=== PATIENT | female | born 1955 | race American Indian/Alaskan Native ===

== ENCOUNTER 2016-11-15 14:44 | Emergency (ER) | payer MEDICARE ==
[2016-11-15 15:05] LABS: Basophils % (Auto) 0.9 % (0.0-1.8); Eosinophils % (Auto) 2.5 % (0.0-4.3); Hematocrit 33.5 % (30.3-42.9); Hemoglobin 11.1 gm/dl (10.1-14.3); Mean Corpuscular HGB Conc 33 % (30-34); Mean Corpuscular Hemoglobin 29 pg (28-32); Mean Corpuscular Volume 88 fl (79-97); Platelet Count 230 K/mm3 (140-440); Red Blood Count 3.83 M/mm3 (3.65-5.03); Red Cell Distribution Width 15.9 % (13.2-15.2); White Blood Count 4.4 K/mm3 (4.5-11.0)
[2016-11-15 15:25] LABS: Calcium 9.5 mg/dL (8.4-10.2); Chloride 93.2 mmol/L (98-107); Potassium 3.7 mmol/L (3.6-5.0)
[2016-11-15 15:30] LABS: Bacteria,Urine 1+ /HPF (Negative); Bilirubin,Urine NEG (Negative); Blood,Urine SM (Negative); Ketones,Urine TR mg/dL (Negative); Leukocyte Esterase,Urine TR (Negative); Mucus,Urine FEW /HPF; Nitrite,Urine NEG (Negative); Protein,Urine <15 mg/dL mg/dL (Negative); Urobilinogen,Urine < 2.0 mg/dL (<2.0)
[2016-11-15] MEDS ORDERED: NACL 0.9% 1000 ML 1,000 ML IV ONE (16:22)
--- NOTE | 2016-11-15 16:29 | Emergency Department Report ---
ED General Adult HPI - General Chief complaint: Hyperglycemia Stated complaint: HBS Time Seen by Provider: 11/15/16 16:10 Source: patient, EMS Mode of arrival: Ambulatory Limitations: No Limitations - History of Present Illness Initial comments: 61-year-old female with history of hypertension, diabetes, schizophrenia, hyperlipidemia presenting today because of hyperglycemia. Patient states that she had a fingerstick of 361 at home and had hotdogs and chips for lunch and noticed that she was lightheaded and that her fingerstick gone to "HI". She had taken 24 units of NovoLog at that time. She states that she has no other significant symptoms other than some mild polydipsia and polyuria. Denies any fevers or chills, dysuria, hematuria, chest pain or pain anywhere else. Patient was unaware about foods such as chips hotdog bonds can bring her sugar levels too high. Severity scale (0 -10): 0 - Related Data Home Medications Medication Instructions Recorded Confirmed Last Taken Aspirin [Baby Aspirin] 81 mg PO QDAY 03/30/13 03/30/13 Unknown Benztropine Mesylate [Benztropine 1 mg PO 03/30/13 03/30/13 Unknown Mesylate INJ] Carvedilol [Coreg] 12.5 mg PO 03/30/13 03/30/13 Unknown Docusate Sodium [Colace] 100 mg PO BID 03/30/13 03/30/13 Unknown Ferrous Gluconate [Fergon] 325 mg PO TID 03/30/13 03/30/13 Unknown Hydrochlorothiazide [Hctz] 25 mg PO QDAY 03/30/13 03/30/13 Unknown Insulin Aspart [NovoLOG 100 10 units SC HS 03/30/13 03/30/13 Unknown UNITS/ML VIAL] Insulin Glargine,Hum.rec.anlog 40 unit SQ QHS 03/30/13 03/30/13 03/29/13 23:00 [Lantus Solostar] Lisinopril [Zestril] 10 mg PO QDAY 03/30/13 03/30/13 Unknown Loxapine Succinate [Loxapine] 50 mg PO TID 03/30/13 03/30/13 Unknown OLANzapine [Zyprexa] 7.5 mg PO DAILY 03/30/13 03/30/13 Unknown Omeprazole [Prilosec] 20 mg PO BID 03/30/13 03/30/13 Unknown Pravastatin (Nf) [Pravachol (Nf)] 30 mg PO 03/30/13 03/30/13 Unknown Ranitidine HCl [Ranitidine 150mg 150 mg PO 03/30/13 03/30/13 Unknown Cap] Sennosides 8.6 mg PO BID 03/30/13 03/30/13 Unknown risperiDONE [Risperidone] 1 mg PO 03/30/13 03/30/13 Unknown risperiDONE [risperiDONE Odt] 0.25 mg IM BIDWM 03/30/13 03/30/13 Unknown Previous Rx's Medication Instructions Recorded Last Taken Type HYDROcodone/APAP 5-325 [[place] 1 each PO Q8HR PRN #15 tablet 03/30/13 Unknown Rx 5/325 mg] Allergies Allergy/AdvReac Type Severity Reaction Status Date / Time amoxicillin [Amoxicillin] Allergy Rash Verified 12/21/13 20:30 ibuprofen [From Advil] Allergy Rash Verified 12/21/13 20:31 metformin Allergy Rash Verified 03/30/13 04:12 Penicillins Allergy Rash Verified 12/21/13 20:30 ED Review of Systems ROS: Stated complaint: HBS Other details as noted in HPI Comment: All other systems reviewed and negative Constitutional: denies: chills, fever Respiratory: denies: cough Cardiovascular: denies: chest pain Gastrointestinal: denies: abdominal pain, vomiting Genitourinary: denies: urgency, dysuria, frequency Neurological: denies: weakness Psychiatric: denies: depression ED Past Medical Hx - Past Medical History Previous Medical History?: Yes Hx Hypertension: Yes Hx Diabetes: Yes Hx GERD: Yes Hx Psychiatric Treatment: Yes Additional medical history: HIGH CHOLESTEROL. Bipolar and schizophrenia - Surgical History Past Surgical History?: Yes Hx Cholecystectomy: Yes Additional Surgical History: rt hand surgery,tonsilectomy - Social History Smoking Status: Never Smoker Substance Use Type: Prescribed - Medications Home Medications: Home Medications Medication Instructions Recorded Confirmed Last Taken Type Aspirin [Baby Aspirin] 81 mg PO QDAY 03/30/13 03/30/13 Unknown History Benztropine Mesylate [Benztropine 1 mg PO 03/30/13 03/30/13 Unknown History Mesylate INJ] Carvedilol [Coreg] 12.5 mg PO 03/30/13 03/30/13 Unknown History Docusate Sodium [Colace] 100 mg PO BID 03/30/13 03/30/13 Unknown History Ferrous Gluconate [Fergon] 325 mg PO TID 03/30/13 03/30/13 Unknown History HYDROcodone/APAP 5-325 [[place] 1 each PO Q8HR PRN #15 tablet 03/30/13 Unknown Rx 5/325 mg] Hydrochlorothiazide [Hctz] 25 mg PO QDAY 03/30/13 03/30/13 Unknown History Insulin Aspart [NovoLOG 100 10 units SC HS 03/30/13 03/30/13 Unknown History UNITS/ML VIAL] Insulin Glargine,Hum.rec.anlog 40 unit SQ QHS 03/30/13 03/30/13 03/29/13 23:00 History [Lantus Solostar] Lisinopril [Zestril] 10 mg PO QDAY 03/30/13 03/30/13 Unknown History Loxapine Succinate [Loxapine] 50 mg PO TID 03/30/13 03/30/13 Unknown History OLANzapine [Zyprexa] 7.5 mg PO DAILY 03/30/13 03/30/13 Unknown History Omeprazole [Prilosec] 20 mg PO BID 03/30/13 03/30/13 Unknown History Pravastatin (Nf) [Pravachol (Nf)] 30 mg PO 03/30/13 03/30/13 Unknown History Ranitidine HCl [Ranitidine 150mg 150 mg PO 03/30/13 03/30/13 Unknown History Cap] Sennosides 8.6 mg PO BID 03/30/13 03/30/13 Unknown History risperiDONE [Risperidone] 1 mg PO 03/30/13 03/30/13 Unknown History risperiDONE [risperiDONE Odt] 0.25 mg IM BIDWM 03/30/13 03/30/13 Unknown History ED Physical Exam - General Limitations: No Limitations General appearance: alert, in no apparent distress - Eye Eye exam: Present: normal appearance - ENT ENT exam: Present: normal exam - Respiratory Respiratory exam: Present: normal lung sounds bilaterally. Absent: respiratory distress - Cardiovascular Cardiovascular Exam: Present: regular rate, normal rhythm - GI/Abdominal GI/Abdominal exam: Present: soft. Absent: distended, tenderness - Neurological Exam Neurological exam: Present: alert, oriented X3. Absent: motor sensory deficit - Psychiatric Psychiatric exam: Present: normal affect - Skin Skin exam: Absent: rash ED Course Vital Signs 11/15/16 11/15/16 11/15/16 14:48 15:46 15:47 Temperature 97.7 F 98 F Pulse Rate 74 74 Respiratory 18 16 16 Rate Blood Pressure 105/53 Blood Pressure 112/48 [Left] O2 Sat by Pulse 100 100 100 Oximetry ED Medical Decision Making - Lab Data Result diagrams: 11/15/16 14:55 11/15/16 14:55 - Medical Decision Making Hyperglycemia, abdominal exam is benign patient not currently having any abdominal pain which is noted at triage. 1 L IV fluids ordered, labs reviewed and shows hyperglycemia but no signs of DKA ekg shows nsr at rate of 62 with normal axis without st changes The explained to the patient the abnormal kidney function and the importance of following up with the primary doctor. Given education on diabetic diet. Critical care attestation.: If time is entered above; I have spent that time in minutes in the direct care of this critically ill patient, excluding procedure time. ED Disposition Clinical Impression: Hyperglycemia Disposition: DISCHARGED TO HOME OR SELFCARE Is pt being admited?: No Does the pt Need Aspirin: No Condition: Stable Instructions: Chronic Kidney Disease (ED), Diabetic Hyperglycemia (ED) Additional Instructions: Please follow-up with your primary care doctor in the next 3-5 days. Return to the emergency room if your symptoms significantly worsen or develop new symptoms. It is important that you follow a low carbohydrate diabetic diet to prevent acute and chronic health problems. Referrals: PRIMARY CARE, [Primary Care Provider] - 3-5 Days
[2016-11-15 18:36] VITALS: BP 148/81
== END 2016-11-15 18:36 | disposition home or self-care (01) ==
LOC: ED 14:44
DX: E11.65 Type 2 diabetes mellitus with hyperglycemia (principal); I10 Essential (primary) hypertension; K21.9 Gastro-esophageal reflux disease without esophagitis; E78.00 Pure hypercholesterolemia, unspecified; F31.9 Bipolar disorder, unspecified; F20.9 Schizophrenia, unspecified; Z90.49 Acquired absence of other specified parts of digestive tract; Z90.89 Acquired absence of other organs; Z79.82 Long term (current) use of aspirin; Z79.4 Long term (current) use of insulin; Z88.0 Allergy status to penicillin; Z88.1 Allergy status to other antibiotic agents; Z88.8 Allergy status to other drugs, medicaments and biological substances
CPT/HCPCS: 36415; 80048; 81001; 82805; 82962; 85025; 93005; 93010; 96360; 99284; J7030

== ENCOUNTER 2017-03-03 10:21 | Outpatient (CLI) | payer MEDICARE ==
--- NOTE | 2017-03-03 14:59 | Ultrasound Report ---
Diagnostic right mammogram and targeted right breast ultrasound. History: Recall for right asymmetry. Findings: Spot compression images demonstrate effacement of the lateral asymmetry. There is confirmation of a low density medial parenchymal asymmetry measuring approximately 6 mm in diameter. This is not identified with certainty on the 90 degree medial lateral view. Therefore ultrasound of the medial half of the right wrist was performed. There is a 5 x 3 mm cyst at the 1:00 position which probably represents the mammographic density. A smaller cyst at 1:00 measures 3.5 mm in diameter. No solid lesions or significant findings are seen. Impression: 2 small cysts are identified. No suspicious imaging findings are present. BI-RADS code: 2. Recommendation: Annual screening.
== END 2017-03-03 10:22 | disposition home or self-care (01) ==
LOC: MAMMO 10:21
PROVIDERS: ATTEND Family Medicine
DX: N60.01 Solitary cyst of right breast (principal); I10 Essential (primary) hypertension
CPT/HCPCS: 76642; G0206

== ENCOUNTER 2017-04-17 13:11 | Emergency (ER) | payer MEDICARE ==
[2017-04-17 16:13] LABS: Basophils % (Auto) 1.1 % (0.0-1.8); Eosinophils % (Auto) 1.9 % (0.0-4.3); Hematocrit 34.9 % (30.3-42.9); Hemoglobin 11.1 gm/dl (10.1-14.3); Mean Corpuscular HGB Conc 32 % (30-34); Mean Corpuscular Hemoglobin 27 pg (28-32); Mean Corpuscular Volume 85 fl (79-97); Platelet Count 229 K/mm3 (140-440); Red Blood Count 4.12 M/mm3 (3.65-5.03); Red Cell Distribution Width 15.9 % (13.2-15.2); White Blood Count 4.9 K/mm3 (4.5-11.0)
[2017-04-17 16:38] LABS: Alanine Aminotransferase 8 units/L (7-56); Albumin 3.9 g/dL (3.9-5); Albumin/Globulin Ratio 1.4 %; Alkaline Phosphatase 71 units/L (35-129); Anion Gap 20 mmol/L; BUN/Creatinine Ratio 16; Blood Urea Nitrogen 13 mg/dL (7-17); Calcium 9.4 mg/dL (8.4-10.2); Carbon Dioxide 26 mmol/L (22-30); Chloride 97.3 mmol/L (98-107); Glucose 290 mg/dL (65-100); Lipase 39 units/L (13-60); Potassium 3.8 mmol/L (3.6-5.0); Sodium 139 mmol/L (137-145); Total Protein 6.7 g/dL (6.3-8.2)
[2017-04-17] MEDS ORDERED: ZOFRAN IV ONE (17:51)
[2017-04-17] MEDS ORDERED: NACL 0.9% 500 ML 500 ML IV ONE (17:51)
[2017-04-17] MEDS ORDERED: BENTYL IM ONE (17:51)
--- NOTE | 2017-04-17 18:19 | Emergency Department Report ---
ED Abdominal Pain HPI - General Chief Complaint: Abdominal Pain Stated Complaint: ABD PAIN Time Seen by Provider: 04/17/17 17:06 Source: EMS Mode of arrival: Ambulatory Limitations: No Limitations - History of Present Illness Initial Comments: 61-year-old female with past medical history of hypertension, schizophrenia has presented to the ED complaining of left lower quadrant pain. Per patient pain started approximately 12 hours prior to arrival. Patient states the pain is located left lower quadrant, nonradiating, crampy, intermittent, no relaxing or worsening factors. Pertinent negatives: Fever/chills, chest pain, nausea/ vomiting/diarrhea. Pt also requesting food to eat, she states hunger makes the pain worse. MD Complaint: abdominal pain -: hour(s) (12) Location: LLQ Radiation: none Migration to: no migration Severity: moderate Severity scale (0 -10): 8 Quality: cramping Consistency: intermittent Improves With: nothing Worsens With: nothing Associated Symptoms: denies: nausea, vomiting, diarrhea, chills, constipation, dysuria, hematemesis, melena, hematuria, anorexia, syncope - Related Data Home Medications Medication Instructions Recorded Confirmed Last Taken Aspirin [Baby Aspirin] 81 mg PO QDAY 03/30/13 03/30/13 Unknown Benztropine Mesylate [Benztropine 1 mg PO 03/30/13 03/30/13 Unknown Mesylate INJ] Carvedilol [Coreg] 12.5 mg PO 03/30/13 03/30/13 Unknown Docusate Sodium [Colace] 100 mg PO BID 03/30/13 03/30/13 Unknown Ferrous Gluconate [Fergon] 325 mg PO TID 03/30/13 03/30/13 Unknown Hydrochlorothiazide [Hctz] 25 mg PO QDAY 03/30/13 03/30/13 Unknown Insulin Aspart [NovoLOG 100 10 units SC HS 03/30/13 03/30/13 Unknown UNITS/ML VIAL] Insulin Glargine,Hum.rec.anlog 40 unit SQ QHS 03/30/13 03/30/13 03/29/13 23:00 [Lantus Solostar] Lisinopril [Zestril] 10 mg PO QDAY 03/30/13 03/30/13 Unknown Loxapine Succinate [Loxapine] 50 mg PO TID 03/30/13 03/30/13 Unknown OLANzapine [Zyprexa] 7.5 mg PO DAILY 03/30/13 03/30/13 Unknown Omeprazole [Prilosec] 20 mg PO BID 03/30/13 03/30/13 Unknown Pravastatin (Nf) [Pravachol (Nf)] 30 mg PO 03/30/13 03/30/13 Unknown Ranitidine HCl [Ranitidine 150mg 150 mg PO 03/30/13 03/30/13 Unknown Cap] Sennosides 8.6 mg PO BID 03/30/13 03/30/13 Unknown risperiDONE [Risperidone] 1 mg PO 03/30/13 03/30/13 Unknown risperiDONE [risperiDONE Odt] 0.25 mg IM BIDWM 03/30/13 03/30/13 Unknown Previous Rx's Medication Instructions Recorded Last Taken Type HYDROcodone/APAP 5-325 [[place] 1 each PO Q8HR PRN #15 tablet 03/30/13 Unknown Rx 5/325 mg] Ciprofloxacin HCl [Cipro] 500 mg PO BID #20 tablet 04/17/17 Unknown Rx Dicyclomine [Bentyl] 20 mg PO QID #20 bottle 04/17/17 Unknown Rx Famotidine [Pepcid] 20 mg PO BID #40 tablet 04/17/17 Unknown Rx Ondansetron [Zofran Odt] 4 mg PO Q8HR #20 tab.rapdis 04/17/17 Unknown Rx metroNIDAZOLE [Flagyl] 500 mg PO Q12HR #20 tab 04/17/17 Unknown Rx Allergies Allergy/AdvReac Type Severity Reaction Status Date / Time amoxicillin [Amoxicillin] Allergy Rash Verified 12/21/13 20:30 ibuprofen [From Advil] Allergy Rash Verified 12/21/13 20:31 metformin Allergy Rash Verified 03/30/13 04:12 Penicillins Allergy Rash Verified 12/21/13 20:30 ED Review of Systems ROS: Stated complaint: ABD PAIN Other details as noted in HPI Constitutional: denies: chills, fever Eyes: denies: eye pain, eye discharge, vision change ENT: denies: ear pain, throat pain Respiratory: denies: cough, shortness of breath, wheezing Cardiovascular: denies: chest pain, palpitations Endocrine: no symptoms reported Gastrointestinal: abdominal pain. denies: nausea, vomiting, diarrhea, constipation, hematemesis, hematochezia Genitourinary: denies: urgency, dysuria, discharge Musculoskeletal: denies: back pain, joint swelling, arthralgia Skin: denies: rash, lesions Neurological: denies: headache, weakness, paresthesias Psychiatric: denies: anxiety, depression Hematological/Lymphatic: denies: easy bleeding, easy bruising ED Past Medical Hx - Past Medical History Previous Medical History?: Yes Hx Hypertension: Yes Hx CVA: No Hx Heart Attack/AMI: No Hx Congestive Heart Failure: No Hx Diabetes: Yes Hx Deep Vein Thrombosis: No Hx Pulmonary Embolism: No Hx GERD: Yes Hx Liver Disease: No Hx Renal Disease: No Hx of Cancer: No Hx Sickle Cell Disease: No Hx Arthritis: No Hx Seizures: No Hx Kidney Stones: No Hx Psychiatric Treatment: Yes Hx Asthma: No Hx COPD: No Hx Tuberculosis: No Hx Dementia: No Hx HIV: No Additional medical history: HIGH CHOLESTEROL. Bipolar and schizophrenia - Surgical History Past Surgical History?: Yes Hx Coronary Stent: No Hx Open Heart Surgery: No Hx Pacemaker: No Hx Internal Defibrillator: No Hx Cholecystectomy: Yes Hx Appendectomy: No Hx Breast Surgery: No Additional Surgical History: rt hand surgery,tonsilectomy - Social History Smoking Status: Former Smoker Substance Use Type: None - Medications Home Medications: Home Medications Medication Instructions Recorded Confirmed Last Taken Type Aspirin [Baby Aspirin] 81 mg PO QDAY 03/30/13 03/30/13 Unknown History Benztropine Mesylate [Benztropine 1 mg PO 03/30/13 03/30/13 Unknown History Mesylate INJ] Carvedilol [Coreg] 12.5 mg PO 03/30/13 03/30/13 Unknown History Docusate Sodium [Colace] 100 mg PO BID 03/30/13 03/30/13 Unknown History Ferrous Gluconate [Fergon] 325 mg PO TID 03/30/13 03/30/13 Unknown History HYDROcodone/APAP 5-325 [[place] 1 each PO Q8HR PRN #15 tablet 03/30/13 Unknown Rx 5/325 mg] Hydrochlorothiazide [Hctz] 25 mg PO QDAY 03/30/13 03/30/13 Unknown History Insulin Aspart [NovoLOG 100 10 units SC HS 03/30/13 03/30/13 Unknown History UNITS/ML VIAL] Insulin Glargine,Hum.rec.anlog 40 unit SQ QHS 03/30/13 03/30/13 03/29/13 23:00 History [Lantus Solostar] Lisinopril [Zestril] 10 mg PO QDAY 03/30/13 03/30/13 Unknown History Loxapine Succinate [Loxapine] 50 mg PO TID 03/30/13 03/30/13 Unknown History OLANzapine [Zyprexa] 7.5 mg PO DAILY 03/30/13 03/30/13 Unknown History Omeprazole [Prilosec] 20 mg PO BID 03/30/13 03/30/13 Unknown History Pravastatin (Nf) [Pravachol (Nf)] 30 mg PO 03/30/13 03/30/13 Unknown History Ranitidine HCl [Ranitidine 150mg 150 mg PO 03/30/13 03/30/13 Unknown History Cap] Sennosides 8.6 mg PO BID 03/30/13 03/30/13 Unknown History risperiDONE [Risperidone] 1 mg PO 03/30/13 03/30/13 Unknown History risperiDONE [risperiDONE Odt] 0.25 mg IM BIDWM 03/30/13 03/30/13 Unknown History Ciprofloxacin HCl [Cipro] 500 mg PO BID #20 tablet 04/17/17 Unknown Rx Dicyclomine [Bentyl] 20 mg PO QID #20 bottle 04/17/17 Unknown Rx Famotidine [Pepcid] 20 mg PO BID #40 tablet 04/17/17 Unknown Rx Ondansetron [Zofran Odt] 4 mg PO Q8HR #20 tab.rapdis 04/17/17 Unknown Rx metroNIDAZOLE [Flagyl] 500 mg PO Q12HR #20 tab 04/17/17 Unknown Rx ED Physical Exam - General Limitations: No Limitations General appearance: alert, in no apparent distress - Head Head exam: Present: atraumatic, normocephalic - Eye Eye exam: Present: normal appearance - ENT ENT exam: Present: mucous membranes moist - Neck Neck exam: Present: normal inspection - Respiratory Respiratory exam: Present: normal lung sounds bilaterally. Absent: respiratory distress - Cardiovascular Cardiovascular Exam: Present: regular rate, normal rhythm. Absent: systolic murmur, diastolic murmur, rubs, gallop - GI/Abdominal GI/Abdominal exam: Present: soft, normal bowel sounds. Absent: distended, tenderness, guarding, rebound - Extremities Exam Extremities exam: Present: normal inspection, full ROM. Absent: tenderness - Back Exam Back exam: Present: normal inspection, full ROM. Absent: tenderness - Neurological Exam Neurological exam: Present: alert, oriented X3 - Psychiatric Psychiatric exam: Present: normal affect, normal mood - Skin Skin exam: Present: warm, dry, intact, normal color. Absent: rash ED Course Vital Signs 04/17/17 04/17/17 04/17/17 14:29 14:34 17:47 Temperature 97.8 F Pulse Rate 70 67 Respiratory 12 12 16 Rate Blood Pressure 150/60 180/71 Blood Pressure 150/60 [Right] O2 Sat by Pulse 100 100 Oximetry 04/17/17 19:00 Temperature 98.0 F Pulse Rate 64 Respiratory 12 Rate Blood Pressure Blood Pressure 179/76 [Right] O2 Sat by Pulse 100 Oximetry - Reevaluation(s) Reevaluation #1: 04/17/17 18:19 Patient resting comfortably Reevaluation #2: 04/17/17 19:08 Patient states pain is improved and she stable discharge home. We attempted multiple times to obtain urine sample however patient states every time she urinated she urinated outside of the sample cup. I will start her on Cipro and Flagyl for abdominal pain that may be secondary to diverticulitis given its in the left lower quadrant and will cover for UTI as well. Patient agrees to plan. Repeat abdominal exam soft nontender nondistended patient tolerating by moutH food in ED. ED Medical Decision Making - Lab Data Result diagrams: 04/17/17 15:46 04/17/17 15:46 - EKG Data -: EKG Interpreted by Me EKG shows normal: sinus rhythm (65), axis (UPRIGHT ), intervals (463), ST-T waves (non specific T wave findings ) Rate: normal - EKG Data When compared to previous EKG there are: previous EKG unavailable Interpretation: other (no specific T wave ) - Radiology Data Radiology results: image reviewed interpreted by me: Chest and Abdominal series is negative for acute findings. - Medical Decision Making 61-year-old female with past medical history of hypertension, schizophrenia has presented to the ED complaining of left lower quadrant pain. 1) abdominal pain At this time does not appear to be acute cause of abdominal pain. I will suspicion for acute infectious process patient has no fever, no white count, pain has resolved. I will dc with cipro and flagyl as well as PCP follow up I will suspicion for: Ovarian torsion, appendicitis, perforated diverticulitis, colitis, mesenteric ischemia Patient agrees she is stable to discharge home. She verbalized understanding of return precautions. Critical Care Time: No Critical care attestation.: If time is entered above; I have spent that time in minutes in the direct care of this critically ill patient, excluding procedure time. ED Disposition Clinical Impression: Abdominal pain Disposition: DC-01 TO HOME OR SELFCARE Is pt being admited?: No Does the pt Need Aspirin: No Condition: Stable Prescriptions: Ciprofloxacin HCl [Cipro] 500 mg PO BID #20 tablet Dicyclomine [Bentyl] 20 mg PO QID #20 bottle Famotidine [Pepcid] 20 mg PO BID #40 tablet metroNIDAZOLE [Flagyl] 500 mg PO Q12HR #20 tab Ondansetron [Zofran Odt] 4 mg PO Q8HR #20 [email or web address] Referrals: PRIMARY CAREMD [Primary Care Provider] - 3-5 Days JOHN BRUNSON MD [Staff Physician] - 3-5 Days Forms: Work/School Release Form(ED)
[2017-04-17 19:01] VITALS: BP 179/76
--- NOTE | 2017-04-17 20:00 | XRay Report ---
FINAL REPORT PROCEDURE: XR ABD SERIES W CXR 1V TECHNIQUE: Abdominal series complete, including supine and upright AP views of the abdomen and frontal chest. HISTORY: Abdominal pain. COMPARISON: No prior studies are available for comparison. FINDINGS: Heart: Normal. Mediastinum/Vessels: Normal. Lungs/Pleural space: Normal. Bowel gas pattern: Nonobstructive. Mildly prominent descending and proximal sigmoid colon. Masses or calcifications: Pelvic phleboliths. Bony structures: Small thoracic and lumbar spine osteophytes. Other: No free intraperitoneal air. Cholecystectomy clips. IMPRESSION: No radiographic evidence of intrathoracic abnormality. Nonobstructive bowel gas pattern. Mildly prominent descending and sigmoid colon, consider possible focal ileus or colitis. Consider CT scan for further characterization if there is continued clinical concern.
== END 2017-04-17 19:39 | disposition home or self-care (01) ==
LOC: ED 13:11
DX: R10.32 Left lower quadrant pain (principal); I10 Essential (primary) hypertension; E11.9 Type 2 diabetes mellitus without complications; K21.9 Gastro-esophageal reflux disease without esophagitis; E78.00 Pure hypercholesterolemia, unspecified; Z79.82 Long term (current) use of aspirin; Z87.891 Personal history of nicotine dependence; Z79.4 Long term (current) use of insulin; Z88.6 Allergy status to analgesic agent; Z88.1 Allergy status to other antibiotic agents; Z88.0 Allergy status to penicillin; Z88.8 Allergy status to other drugs, medicaments and biological substances
CPT/HCPCS: 36415; 74022; 80053; 82962; 83690; 85025; 93005; 93010; 96372; 96374; 99284; J0500; J2405; J7040

== ENCOUNTER 2017-06-06 22:24 | Emergency (ER) | payer MEDICARE ==
[2017-06-06 23:49] LABS: Basophils % (Auto) 0.8 % (0.0-1.8); Eosinophils % (Auto) 2.5 % (0.0-4.3); Hematocrit 31.8 % (30.3-42.9); Hemoglobin 10.3 gm/dl (10.1-14.3); Mean Corpuscular HGB Conc 32 % (30-34); Mean Corpuscular Hemoglobin 27 pg (28-32); Mean Corpuscular Volume 84 fl (79-97); Platelet Count 275 K/mm3 (140-440); Red Blood Count 3.78 M/mm3 (3.65-5.03); Red Cell Distribution Width 17.3 % (13.2-15.2); White Blood Count 5.7 K/mm3 (4.5-11.0)
[2017-06-07 00:17] LABS: Calcium 9.5 mg/dL (8.4-10.2); Chloride 99.5 mmol/L (98-107); Potassium 3.9 mmol/L (3.6-5.0)
--- NOTE | 2017-06-07 01:29 | Cat Scan Report ---
FINAL REPORT EXAM: CT HEAD/BRAIN WO CON HISTORY: Headache COMPARISON: None available. TECHNIQUE: Axial images obtained skull base through vertex. FINDINGS: No acute intracranial hemorrhage, midline shift or pathologic extra axial fluid collection. Ventricles and cisterns are normal in size and configuration for the patient's age. High-white differentiation preserved. Calvarium grossly intact. Visualized orbits are grossly unremarkable. Mild mucosal thickening of the right sphenoid sinus and ethmoid air cells. Mastoid air cells are clear. IMPRESSION: No grossly acute intracranial abnormality.
[2017-06-07 02:12] LABS: Bacteria,Urine 2+ /HPF (Negative); Bilirubin,Urine NEG (Negative); Blood,Urine SM (Negative); Ketones,Urine TR mg/dL (Negative); Leukocyte Esterase,Urine MOD (Negative); Mucus,Urine 3+ /HPF; Nitrite,Urine NEG (Negative)
--- NOTE | 2017-06-07 04:22 | Emergency Department Report ---
ED General Adult HPI - General Chief complaint: Hypoglycemia Stated complaint: HEADACHE Time Seen by Provider: 06/07/17 04:06 Source: patient, EMS Mode of arrival: Wheelchair Limitations: Physical Limitation - History of Present Illness Initial comments: Patient is 61 years old female history of diabetes she is on insulin again today for evaluation of low blood sugar. Patient stated she took her insulin and high blood sugar dropped to 80s and into 60s. No headache. Denied any weakness numbness or tingling sensation. He denied fever. Severity scale (0 -10): 7 - Related Data Home Medications Medication Instructions Recorded Confirmed Last Taken Aspirin [Baby Aspirin] 81 mg PO QDAY 03/30/13 03/30/13 Unknown Benztropine Mesylate [Benztropine 1 mg PO 03/30/13 03/30/13 Unknown Mesylate INJ] Carvedilol [Coreg] 12.5 mg PO 03/30/13 03/30/13 Unknown Docusate Sodium [Colace] 100 mg PO BID 03/30/13 03/30/13 Unknown Ferrous Gluconate [Fergon] 325 mg PO TID 03/30/13 03/30/13 Unknown Hydrochlorothiazide [Hctz] 25 mg PO QDAY 03/30/13 03/30/13 Unknown Insulin Aspart [NovoLOG 100 10 units SC HS 03/30/13 03/30/13 Unknown UNITS/ML VIAL] Insulin Glargine,Hum.rec.anlog 40 unit SQ QHS 03/30/13 03/30/13 03/29/13 23:00 [Lantus Solostar] Lisinopril [Zestril] 10 mg PO QDAY 03/30/13 03/30/13 Unknown Loxapine Succinate [Loxapine] 50 mg PO TID 03/30/13 03/30/13 Unknown OLANzapine [Zyprexa] 7.5 mg PO DAILY 03/30/13 03/30/13 Unknown Omeprazole [Prilosec] 20 mg PO BID 03/30/13 03/30/13 Unknown Pravastatin [Pravachol (Nf)] 30 mg PO 03/30/13 03/30/13 Unknown Ranitidine HCl [Ranitidine 150mg 150 mg PO 03/30/13 03/30/13 Unknown Cap] Sennosides 8.6 mg PO BID 03/30/13 03/30/13 Unknown risperiDONE [Risperidone] 1 mg PO 03/30/13 03/30/13 Unknown risperiDONE [risperiDONE Odt] 0.25 mg IM BIDWM 03/30/13 03/30/13 Unknown Previous Rx's Medication Instructions Recorded Last Taken Type HYDROcodone/APAP 5-325 [Maben 1 each PO Q8HR PRN #15 tablet 03/30/13 Unknown Rx 5/325 mg] Ciprofloxacin HCl [Cipro] 500 mg PO BID #20 tablet 04/17/17 Unknown Rx Dicyclomine [Bentyl] 20 mg PO QID #20 bottle 04/17/17 Unknown Rx Famotidine [Pepcid] 20 mg PO BID #40 tablet 04/17/17 Unknown Rx Ondansetron [Zofran Odt] 4 mg PO Q8HR #20 tab.rapdis 04/17/17 Unknown Rx metroNIDAZOLE [Flagyl] 500 mg PO Q12HR #20 tab 04/17/17 Unknown Rx Allergies Allergy/AdvReac Type Severity Reaction Status Date / Time amoxicillin [Amoxicillin] Allergy Rash Verified 12/21/13 20:30 ibuprofen [From Advil] Allergy Rash Verified 12/21/13 20:31 metformin Allergy Rash Verified 03/30/13 04:12 Penicillins Allergy Rash Verified 12/21/13 20:30 ED Review of Systems ROS: Stated complaint: HEADACHE Other details as noted in HPI Comment: All other systems reviewed and negative Constitutional: denies: chills, diaphoresis, fever ENT: denies: ear pain, throat pain, hearing loss, epistaxis Respiratory: denies: cough, orthopnea, shortness of breath, SOB with exertion, SOB at rest, stridor, wheezing Cardiovascular: denies: chest pain, palpitations, dyspnea on exertion Gastrointestinal: denies: abdominal pain, nausea, vomiting, diarrhea, constipation, hematemesis, hematochezia Genitourinary: frequency. denies: urgency, hematuria Musculoskeletal: denies: joint swelling Skin: denies: lesions Neurological: denies: headache, weakness, numbness, paresthesias, confusion ED Past Medical Hx - Past Medical History Previous Medical History?: Yes Hx Hypertension: Yes Hx CVA: No Hx Heart Attack/AMI: No Hx Congestive Heart Failure: No Hx Diabetes: Yes Hx Deep Vein Thrombosis: No Hx Pulmonary Embolism: No Hx GERD: Yes Hx Liver Disease: No Hx Renal Disease: No Hx Sickle Cell Disease: No Hx Arthritis: No Hx Seizures: No Hx Kidney Stones: No Hx Psychiatric Treatment: Yes (schizophrenia, Bipolar) Hx Asthma: No Hx COPD: No Hx Tuberculosis: No Hx Dementia: No Hx HIV: No Additional medical history: HIGH CHOLESTEROL. Bipolar and schizophrenia - Surgical History Hx Coronary Stent: No Hx Open Heart Surgery: No Hx Pacemaker: No Hx Internal Defibrillator: No Hx Cholecystectomy: Yes Hx Appendectomy: No Hx Breast Surgery: No Additional Surgical History: rt hand surgery,tonsilectomy - Social History Smoking Status: Never Smoker - Medications Home Medications: Home Medications Medication Instructions Recorded Confirmed Last Taken Type Aspirin [Baby Aspirin] 81 mg PO QDAY 03/30/13 03/30/13 Unknown History Benztropine Mesylate [Benztropine 1 mg PO 03/30/13 03/30/13 Unknown History Mesylate INJ] Carvedilol [Coreg] 12.5 mg PO 03/30/13 03/30/13 Unknown History Docusate Sodium [Colace] 100 mg PO BID 03/30/13 03/30/13 Unknown History Ferrous Gluconate [Fergon] 325 mg PO TID 03/30/13 03/30/13 Unknown History HYDROcodone/APAP 5-325 [Maben 1 each PO Q8HR PRN #15 tablet 03/30/13 Unknown Rx 5/325 mg] Hydrochlorothiazide [Hctz] 25 mg PO QDAY 03/30/13 03/30/13 Unknown History Insulin Aspart [NovoLOG 100 10 units SC HS 03/30/13 03/30/13 Unknown History UNITS/ML VIAL] Insulin Glargine,Hum.rec.anlog 40 unit SQ QHS 03/30/13 03/30/13 03/29/13 23:00 History [Lantus Solostar] Lisinopril [Zestril] 10 mg PO QDAY 03/30/13 03/30/13 Unknown History Loxapine Succinate [Loxapine] 50 mg PO TID 03/30/13 03/30/13 Unknown History OLANzapine [Zyprexa] 7.5 mg PO DAILY 03/30/13 03/30/13 Unknown History Omeprazole [Prilosec] 20 mg PO BID 03/30/13 03/30/13 Unknown History Pravastatin [Pravachol (Nf)] 30 mg PO 03/30/13 03/30/13 Unknown History Ranitidine HCl [Ranitidine 150mg 150 mg PO 03/30/13 03/30/13 Unknown History Cap] Sennosides 8.6 mg PO BID 03/30/13 03/30/13 Unknown History risperiDONE [Risperidone] 1 mg PO 03/30/13 03/30/13 Unknown History risperiDONE [risperiDONE Odt] 0.25 mg IM BIDWM 03/30/13 03/30/13 Unknown History Ciprofloxacin HCl [Cipro] 500 mg PO BID #20 tablet 04/17/17 Unknown Rx Dicyclomine [Bentyl] 20 mg PO QID #20 bottle 04/17/17 Unknown Rx Famotidine [Pepcid] 20 mg PO BID #40 tablet 04/17/17 Unknown Rx Ondansetron [Zofran Odt] 4 mg PO Q8HR #20 tab.rapdis 04/17/17 Unknown Rx metroNIDAZOLE [Flagyl] 500 mg PO Q12HR #20 tab 04/17/17 Unknown Rx ED Physical Exam - General Limitations: Physical Limitation General appearance: alert, in no apparent distress - Head Head exam: Present: atraumatic, normocephalic, normal inspection - Eye Eye exam: Present: normal appearance, PERRL Pupils: Present: normal accommodation - ENT ENT exam: Present: normal exam, normal orophraynx, mucous membranes moist - Respiratory Respiratory exam: Present: normal lung sounds bilaterally. Absent: respiratory distress, wheezes, rales, rhonchi, stridor, chest wall tenderness, accessory muscle use, decreased breath sounds, prolonged expiratory - Cardiovascular Cardiovascular Exam: Present: regular rate, normal rhythm, normal heart sounds - GI/Abdominal GI/Abdominal exam: Present: soft, normal bowel sounds. Absent: distended, tenderness, guarding, rebound, rigid, diminished bowel sounds, organomegaly, mass, bruit, pulsatile mass, hernia - Extremities Exam Extremities exam: Present: normal inspection, normal capillary refill. Absent: full ROM, tenderness - Back Exam Back exam: Present: normal inspection. Absent: full ROM, tenderness, CVA tenderness (R), CVA tenderness (L), muscle spasm, paraspinal tenderness, vertebral tenderness - Neurological Exam Neurological exam: Present: alert, oriented X3, CN II-XII intact, normal gait. Absent: abnormal gait, motor sensory deficit - Skin Skin exam: Present: warm, intact, normal color ED Course Vital Signs 06/06/17 06/07/17 06/07/17 23:06 02:45 02:46 Temperature 98.2 F Pulse Rate 89 71 Respiratory 20 17 18 Rate Blood Pressure 103/46 130/61 Blood Pressure 141/54 [Left] O2 Sat by Pulse 98 99 98 Oximetry 06/07/17 06/07/17 03:00 03:15 Temperature Pulse Rate 70 70 Respiratory 16 19 Rate Blood Pressure 136/60 137/62 Blood Pressure [Left] O2 Sat by Pulse 98 100 Oximetry - Reevaluation(s) Reevaluation #1: 06/07/17 04:25 Patient remained stable in the ER. No symptoms. ED Medical Decision Making - Lab Data Result diagrams: 06/06/17 23:23 06/06/17 23:23 Critical care attestation.: If time is entered above; I have spent that time in minutes in the direct care of this critically ill patient, excluding procedure time. ED Disposition Clinical Impression: Hypoglycemia, UTI (urinary tract infection) Disposition: DC-01 TO HOME OR SELFCARE Is pt being admited?: No Condition: Stable Instructions: Diabetic Hypoglycemia (ED), Urinary Tract Infection in Women (ED) Referrals: PRIMARY CARE, [Primary Care Provider] - 3-5 Days
[2017-06-07 05:51] VITALS: BP 126/55
== END 2017-06-07 05:00 | disposition home or self-care (01) ==
LOC: ED 22:24
DX: E11.649 Type 2 diabetes mellitus with hypoglycemia without coma (principal); N39.0 Urinary tract infection, site not specified; I10 Essential (primary) hypertension; K21.9 Gastro-esophageal reflux disease without esophagitis; E78.5 Hyperlipidemia, unspecified; Z79.82 Long term (current) use of aspirin; Z79.4 Long term (current) use of insulin; Z88.0 Allergy status to penicillin; Z88.1 Allergy status to other antibiotic agents; Z88.6 Allergy status to analgesic agent
CPT/HCPCS: 36415; 70450; 80048; 80164; 81001; 82962; 85025

== ENCOUNTER 2017-06-19 00:52 | Inpatient (IN) | payer MEDICARE ==
--- NOTE | 2017-06-19 01:45 | Emergency Department Report ---
HPI - General Chief Complaint: Dizziness Time Seen by Provider: 06/19/17 01:21 - HPI HPI: This is a 61-year-old -[place] female who presents to the emergency department via EMS from her personal residential with a complaint of some nonspecific dizziness and some numbness to the left hand as well as some left arm shaking that occurred this evening. The patient is a insulin-dependent diabetic and says that her blood sugar was about 500 this morning and she checked this evening when she was having the above-mentioned symptoms and the blood sugar was about 40. Patient is currently at the personal residential secondary to a history of schizophrenia but says that she is not having any signs of psychosis including no hallucinations or suicidal ideations. She gets her primary care through the [facility]. She also has a history of hypertension and hyperlipidemia. She does not take anything or receive anything for her symptoms prior to presentation other than drinking some juice to bring up the blood sugar. No recent travel or sick contacts at home. ED Past Medical Hx - Past Medical History Hx Hypertension: Yes Hx CVA: No Hx Heart Attack/AMI: No Hx Congestive Heart Failure: No Hx Diabetes: Yes Hx Deep Vein Thrombosis: No Hx Pulmonary Embolism: No Hx GERD: Yes Hx Liver Disease: No Hx Renal Disease: No Hx Sickle Cell Disease: No Hx Arthritis: No Hx Seizures: No Hx Kidney Stones: No Hx Psychiatric Treatment: Yes (schizophrenia, Bipolar) Hx Asthma: No Hx COPD: No Hx Tuberculosis: No Hx Dementia: No Hx HIV: No Additional medical history: HIGH CHOLESTEROL. Bipolar and schizophrenia - Surgical History Hx Coronary Stent: No Hx Open Heart Surgery: No Hx Pacemaker: No Hx Internal Defibrillator: No Hx Cholecystectomy: Yes Hx Appendectomy: No Hx Breast Surgery: No Additional Surgical History: rt hand surgery,tonsilectomy - Social History Smoking Status: Never Smoker - Medications Home Medications: Home Medications Medication Instructions Recorded Confirmed Last Taken Type Aspirin [Baby Aspirin] 81 mg PO QDAY 03/30/13 06/19/17 06/18/17 History Benztropine Mesylate [Benztropine 1 mg PO DAILY 03/30/13 06/19/17 06/18/17 History Mesylate INJ] Carvedilol [Coreg] 12.5 mg PO DAILY 03/30/13 06/19/17 06/18/17 History Insulin Aspart [NovoLOG 100 10 units SC HS 03/30/13 06/19/1706/18/17 History UNITS/ML VIAL] Insulin Glargine,Hum.rec.anlog 40 unit SQ QHS 03/30/13 06/19/17 06/18/17 History [Lantus Solostar] Lisinopril [Zestril] 5 mg PO QDAY 03/30/13 06/19/17 06/18/17 History Omeprazole [Prilosec] 40 mg PO DAILY 03/30/13 06/19/17 06/18/17 History ARIPiprazole [Abilify] 30 mg PO DAILY 06/19/17 06/19/17 06/18/17 History Cholecalciferol (Vitamin D3) 1,000 unit PO BID 06/19/17 06/19/17 06/18/17 History [Vitamin D3] Divalproex Sodium [Depakote ER] 500 mg PO TID 06/19/17 06/19/17 06/18/17 History ED Review of Systems ROS: Stated complaint: DIZZINESS Other details as noted in HPI Comment: All other systems reviewed and negative Constitutional: denies: chills, fever Eyes: denies: eye pain, eye discharge, vision change ENT: denies: ear pain, throat pain Respiratory: denies: cough, shortness of breath, wheezing Cardiovascular: denies: chest pain, palpitations Gastrointestinal: denies: abdominal pain, nausea, diarrhea Genitourinary: denies: urgency, dysuria, discharge Musculoskeletal: denies: back pain, joint swelling, arthralgia Skin: denies: rash, lesions Neurological: numbness (left hand), other (dizziness) Physical Exam - Physical Exam Vital Signs: Vital Signs 06/19/17 01:02 Temperature 97.8 F Pulse Rate 85 O2 Sat by Pulse 98 Oximetry Physical Exam: GENERAL: The patient is well-developed well-nourished. HENT: Normocephalic. Atraumatic. Patient has moist mucous membranes. EYES: Extraocular motions are intact. Pupils equal reactive to light bilaterally. There is some fatigable horizontal nystagmus. NECK: Supple. Trachea is midline. CHEST/LUNGS: Clear to auscultation. There is no respiratory distress noted. HEART/CARDIOVASCULAR: Regular. There is no tachycardia. There is no murmur. ABDOMEN: Abdomen is soft, nontender. Patient has normal bowel sounds. There is no abdominal distention. SKIN: Skin is warm and dry. NEURO: The patient is awake, alert, and oriented. The patient is cooperative. There is no facial asymmetry. No obvious motor deficits. There is subjective decreased sensation to the left hand and forearm. There is no pronator drift or dysmetria. The patient has slow delivery of speech but there is no slurring or obvious aphasia. MUSCULOSKELETAL: There is no tenderness or deformity. There is no limitation range of motion. There is no evidence of acute injury. Radial pulse +2 over 4 bilaterally. ED Course Vital Signs 06/19/17 01:02 Temperature 97.8 F Pulse Rate 85 O2 Sat by Pulse 98 Oximetry - Reevaluation(s) Reevaluation #1: 06/19/17 05:41 NIH Stroke Scale/Score (NIHSS) from [employer] on 06/19/2017 All calculations should be rechecked by clinician prior to use RESULT SUMMARY: 1 points NIH Stroke Scale INPUTS: 1A: Level of consciousness > 0 = Alert; keenly responsive 1B: Ask month and age > 0 = Both questions right 1C: 'Blink eyes' & 'squeeze hands' > 0 = Performs both tasks 2: Horizontal extraocular movements > 0 = Normal 3: Visual waldrop > 0 = No visual loss 4: Facial palsy > 0 = Normal symmetry 5A: Left arm motor drift > 0 = No drift for 10 seconds 5B: Right arm motor drift > 0 = No drift for 10 seconds 6A: Left leg motor drift > 0 = No drift for 5 seconds 6B: Right leg motor drift > 0 = No drift for 5 seconds 7: Limb Ataxia > 0 = No ataxia 8: Sensation > 1 = Mild-moderate loss: less sharp/more dull 9: Language/aphasia > 0 = Normal; no aphasia 10: Dysarthria > 0 = Normal 11: Extinction/inattention > 0 = No abnormality Patient does not appear to be a TPA candidate as there is no obvious last known well time and she has a very low NIH stroke scale. ED Medical Decision Making - Lab Data Result diagrams: 06/19/17 01:35 06/19/17 01:35 - EKG Data -: EKG Interpreted by Me EKG shows normal: sinus rhythm, axis, intervals (borderline prolonged QT and QTC intervals), QRS complexes, ST-T waves (there is some mild nonspecific ST elevation 2 leads V1 and V2 but no reciprocal depressions. Borderline T-wave inversions to the lateral leads) Rate: normal - EKG Data When compared to previous EKG there are: previous EKG unavailable Interpretation: other (sinus rhythm, normal axis, rate of 83.there is some mild nonspecific ST elevation 2 leads V1 and V2 but no reciprocal depressions. Borderline T-wave inversions to the lateral leads) - Radiology Data Radiology results: report reviewed EXAM: CT Head w/o Contrast CLINICAL INDICATIONS: NUMBNESS FINDINGS: Unenhanced CT of the brain was performed and demonstrates no acute intracranial hemorrhage, extra-axial fluid collection, midline shift or mass effect. The ventricles and basal cisterns are not effaced. The mastoid air cells and middle ears appear clear. There is a right sphenoid polyp versus mucous retention cyst. There is no evidence of acute sinusitis. IMPRESSION: NO ACUTE INTRACRANIAL HEMORRHAGE Transcribed By: CAROLINA Dictated By: NEWTON GALINDO MD Electronically Authenticated By: NEWTON GALINDO MD Signed Date/Time: 06/18/17 4583 - Medical Decision Making 61-year-old female presents with some dizziness and left hand or arm numbness that started earlier in the evening. There is no definitive last known well time. The patient would be a 1 on the NIH stroke scale secondary to her subjective decreased sensation to her left upper extremity. CT of the head did not show any bleed, shift, mass or any acute process. It also could've been secondary to some hypoglycemia. Patient had a blood sugar of 40 at home, 80 with EMS and then had a blood sugar of 60 from her serum labs. We then gave her some D50 and some food and/or juice and her blood sugar remained stable of about 110 to 130. EKG did not show any ST elevation CA but there was some nonspecific anterior elevation and nonspecific or borderline T-wave inversions. Labs are mostly unremarkable and do not show any etiology of her symptoms. However with all of these concerns and/or abnormalities, the patient will be admitted to the hospital for further evaluation and treatment and has been accepted for admission by the hospitalist, Dr. Flaherty. - Differential Diagnosis CVA, TIA, hypoglycemia, dysrhythmia Critical Care Time: No Critical care attestation.: If time is entered above; I have spent that time in minutes in the direct care of this critically ill patient, excluding procedure time. ED Disposition Clinical Impression: Hypoglycemia, Numbness of left hand, Dizziness, Abnormal EKG Disposition: DC-09 OP ADMIT IP TO THIS HOSP Is pt being admited?: Yes Does the pt Need Aspirin: Yes Condition: Stable Time of Disposition: 05:45
[2017-06-19] MEDS ORDERED: VALIUM IV ONE (02:07)
[2017-06-19 02:11] LABS: INR 0.86 (0.87-1.13); Partial Thromboplastin Time 23.9 Sec. (24.2-36.6)
[2017-06-19 02:21] LABS: Basophils % (Auto) 0.6 % (0.0-1.8); Eosinophils % (Auto) 1.6 % (0.0-4.3); Hematocrit 31.4 % (30.3-42.9); Hemoglobin 10.7 gm/dl (10.1-14.3); Mean Corpuscular HGB Conc 34 % (30-34); Mean Corpuscular Hemoglobin 29 pg (28-32); Mean Corpuscular Volume 84 fl (79-97); Platelet Count 196 K/mm3 (140-440); Red Blood Count 3.76 M/mm3 (3.65-5.03); Red Cell Distribution Width 16.6 % (13.2-15.2); White Blood Count 6.8 K/mm3 (4.5-11.0)
[2017-06-19 02:27] LABS: Alanine Aminotransferase 7 units/L (7-56); Albumin 3.5 g/dL (3.9-5); Albumin/Globulin Ratio 1.3 %; Alkaline Phosphatase 72 units/L (35-129); Anion Gap 17 mmol/L; BUN/Creatinine Ratio 22; Blood Urea Nitrogen 24 mg/dL (7-17); Calcium 9.4 mg/dL (8.4-10.2); Carbon Dioxide 25 mmol/L (22-30); Chloride 99.5 mmol/L (98-107); Glucose 64 mg/dL (65-100); Potassium 3.3 mmol/L (3.6-5.0); Sodium 138 mmol/L (137-145); Total Protein 6.1 g/dL (6.3-8.2)
[2017-06-19] MEDS ORDERED: D50W (25GM) Syringe IV ONE (02:29)
[2017-06-19] MEDS ORDERED: K-DUR PO ONE (02:36)
--- NOTE | 2017-06-19 03:25 | Cat Scan Report ---
FINAL REPORT EXAM: CT Head w/o Contrast CLINICAL INDICATIONS: NUMBNESS FINDINGS: Unenhanced CT of the brain was performed and demonstrates no acute intracranial hemorrhage, extra-axial fluid collection, midline shift or mass effect. The ventricles and basal cisterns are not effaced. The mastoid air cells and middle ears appear clear. There is a right sphenoid polyp versus mucous retention cyst. There is no evidence of acute sinusitis. IMPRESSION: NO ACUTE INTRACRANIAL HEMORRHAGE
[2017-06-19] MEDS ORDERED: VALIUM PO ONE ×2 (04:20→04:30)
[2017-06-19] MEDS ORDERED: BABY ASPIRIN PO ONE (05:45)
[2017-06-19] MEDS ORDERED: SODIUM CHLORIDE FLUSH SYRINGE 10 ML IV PRN (06:11)
[2017-06-19] MEDS ORDERED: APRESOLINE IV PRN (06:11)
[2017-06-19] MEDS ORDERED: DULCOLAX PR PRN (06:11)
[2017-06-19] MEDS ORDERED: MILK OF MAGNESIA PO PRN (06:11)
[2017-06-19] MEDS ORDERED: TYLENOL PO PRN (06:11)
[2017-06-19] MEDS ORDERED: ZOFRAN IV PRN (06:11)
--- NOTE | 2017-06-19 06:21 | History and Physical Report ---
History of Present Illness Date of examination: 06/19/17 History of present illness: 61 -year-old male with a history of hypertension, diabetes, GERD, hyperlipidemia , bipolar, schizophrenia, emergency room with complaints of hypoglycemia, blood sugar was 40, sugar was repleted. In the emergency room she developed right hand paresthesia which is persistent Review Of Systems: Constitutional: no weight loss Ears, eyes, nose, mouth and throat: no nasal congestion, no nasal discharge, no sinus pressure, blurry vision, diplopia Neck: No neck pain or rigidity. Cardiovascular: No chest pain, palpitations Respiratory: No shortness of breath, cough Gastrointestinal: No abdominal pain, hematochezia Genitourinary : no dysuria, frequency , hematuria Musculoskeletal: no muscle ache Integumentary: no rash, no pruritis Neurological: no parathesias, focal weakness Endocrine: no cold or heat intolerance, no polyuria or polydipsia Hematologic/Lymphatic: no easy bruising, no easy bleeding, no gland swelling Allergic/Immunologic: no urticaria, no angioedema. PAST MEDICAL HISTORY:hypertension, diabetes, GERD, hyperlipidemia, bipolar, schizophrenia, PAST SURGICAL HISTORY: Tonsillectomy, hand surgery FAMILY HISTORY:hypertension SOCIAL HISTORY: Denies alcohol, tobacco, drugs Medications and Allergies Allergies Allergy/AdvReac Type Severity Reaction Status Date / Time amoxicillin [Amoxicillin] Allergy Rash Verified 12/21/13 20:30 ibuprofen [From Advil] Allergy Rash Verified 12/21/13 20:31 metformin Allergy Rash Verified 03/30/13 04:12 Penicillins Allergy Rash Verified 12/21/13 20:30 Home Medications Medication Instructions Recorded Confirmed Last Taken Type Aspirin [Aspirin BABY CHEW TAB] 81 mg PO QDAY 03/30/13 06/19/17 06/18/17 History Carvedilol [Coreg] 12.5 mg PO DAILY 03/30/13 06/19/17 06/18/17 History Insulin Aspart [NovoLOG 100 10 units SC HS 03/30/13 06/19/17 06/18/17 History UNITS/ML VIAL] Insulin Glargine,Hum.rec.anlog 40 unit SQ QHS 03/30/13 06/19/17 06/18/17 History [Lantus Solostar] Lisinopril [Zestril TAB] 5 mg PO QDAY 03/30/13 06/19/17 06/18/17 History Omeprazole [PriLOSEC] 40 mg PO DAILY 03/30/13 06/19/17 06/18/17 History ARIPiprazole [Abilify] 30 mg PO DAILY 06/19/17 06/19/17 06/18/17 History Cholecalciferol (Vitamin D3) 1,000 unit PO BID 06/19/17 06/19/17 06/18/17 History [Vitamin D3] Divalproex Sodium [Depakote ER] 500 mg PO TID 06/19/17 06/19/17 06/18/17 History Clopidogrel [Plavix] 75 mg PO DAILY #30 tablet 06/20/17 Unknown Rx Exam - Physical Exam Narrative exam: Gen. appearance: Patient lying in bed in no acute distress HEENT: Normocephalic/atraumatic, pupils equal round reactive to light, extra occular movement intact, no scleral icterus, no JVD or thyromegaly or nodule, neck is supple, mucous membrane moist, no erythema or exudate Heart: S1-S2, regular rate and rhythm Lungs: Clear to auscultation bilateral breathing comfortable Abdomen: Positive bowel sounds, nontender, nondistended, no organomegaly Extremities: No edema, cyanosis, clubbing Neuro:: Oriented 3 , cranial nerves II-12 intact, right hand paresthesia, speech, motor intact Skin: No rash, nodules, warm dry - Constitutional Vitals: Temp Pulse Resp BP Pulse Ox 97.8 F 82 15 122/58 98 06/19/17 01:02 06/19/17 02:00 06/19/17 02:00 06/19/17 02:00 06/19/17 02:00 Results - Labs CBC & Chem 7: 06/19/17 01:35 06/20/17 05:33 Labs: Abnormal lab results 06/19/17 06/19/17 06/19/17 Range/Units 01:35 01:35 01:35 RDW 16.6 H (13.2-15.2) % Ada % (Auto) 7.7 H (0.0-7.3) % PT 12.1 L (12.2-14.9) Sec. INR 0.86 L (0.87-1.13) APTT 23.9 L (24.2-36.6) Sec. Potassium 3.3 L (3.6-5.0) mmol/L BUN 24 H (7-17) mg/dL Glucose 64 L (65-100) mg/dL POC Glucose (70-105) Total Protein 6.1 L (6.3-8.2) g/dL Albumin 3.5 L (3.9-5) g/dL TSH (0.270-4.200) mlU/mL 06/19/17 06/19/17 06/19/17 Range/Units 01:35 03:27 04:20 RDW (13.2-15.2) % Ada % (Auto) (0.0-7.3) % PT (12.2-14.9) Sec. INR (0.87-1.13) APTT (24.2-36.6) Sec. Potassium (3.6-5.0) mmol/L BUN (7-17) mg/dL Glucose (65-100) mg/dL POC Glucose 110 H 138 H (70-105) Total Protein (6.3-8.2) g/dL Albumin (3.9-5) g/dL TSH 4.790 H (0.270-4.200) mlU/mL - Imaging and Cardiology CT Scan - head: report reviewed Assessment and Plan Assessment TIA versus CVA hypertension diabetes GERD hyperlipidemia bipolar schizophrenia Plan Admit to medicine Abdomen MRI of that, carotid Doppler, echo Do neurochecks, swallow screen Start Plavix, statin Check fingersticks and initiate insulin sliding scale Continue appropriate office medication, DVT prophylaxis Consult neurology
[2017-06-19] MEDS ORDERED: D50W (25GM) Syringe IV PRN (06:24)
[2017-06-19 09:40] LABS: Bacteria,Urine 1+ /HPF (Negative); Bilirubin,Urine NEG (Negative); Blood,Urine SM (Negative); Ketones,Urine NEG (Negative); Leukocyte Esterase,Urine MOD (Negative); Mucus,Urine FEW /HPF; Nitrite,Urine NEG (Negative); Protein,Urine <15 mg/dL mg/dL (Negative); Urobilinogen,Urine < 2.0 mg/dL (<2.0)
[2017-06-19] MEDS ORDERED: ZESTRIL PO SCH (10:00)
[2017-06-19] MEDS: COREG PO SCH (10:13)
[2017-06-19] MEDS: ZESTRIL PO SCH (10:13)
--- NOTE | 2017-06-19 11:07 | Magnetic Resonance Report ---
FINAL REPORT EXAM: MR BRAIN WO CON HISTORY: stroke TECHNIQUE: MRI of the brain without IV contrast. PRIORS: CT head June 18, 2017. FINDINGS: Midline structures are unremarkable. There is no tonsillar ectopy. Age appropriate cordero-white matter differentiation is noted. There is no hydrocephalus. There is no mass. There is no hemorrhage. There is no midline shift. There is no restricted diffusion to suggest acute ischemia. The CP angles are grossly noted. Major flow voids are present. Mild mucosal thickening in both ethmoid sinuses. Small polyp or retention cysts in the right frontal ethmoidal recess. Globes are intact. Calvarial signal characteristics are grossly unremarkable. Extracranial soft tissues are intact. IMPRESSION: No acute intracranial findings.
--- NOTE | 2017-06-19 14:05 | Consultation ---
History of Present Illness Consult date: 06/19/17 History of present illness: patient seen and full consult is dictated suspect TIA and symptoms from hyperglycemia could have beenn focal seizure plan to check valproic acid level ( depakote) went over the MRI of the brai nad there is no evidence of stroke left eye blindness is old Medications and Allergies Allergies Allergy/AdvReac Type Severity Reaction Status Date / Time amoxicillin [Amoxicillin] Allergy Rash Verified 12/21/13 20:30 ibuprofen [From Advil] Allergy Rash Verified 12/21/13 20:31 metformin Allergy Rash Verified 03/30/13 04:12 Penicillins Allergy Rash Verified 12/21/13 20:30 Home Medications Medication Instructions Recorded Confirmed Last Taken Type Aspirin [Baby Aspirin] 81 mg PO QDAY 03/30/13 06/19/17 06/18/17 History Benztropine Mesylate [Benztropine 1 mg PO DAILY 03/30/13 06/19/17 06/18/17 History Mesylate INJ] Carvedilol [Coreg] 12.5 mg PO DAILY 03/30/13 06/19/17 06/18/17 History Insulin Aspart [NovoLOG 100 10 units SC HS 03/30/13 06/19/17 06/18/17 History UNITS/ML VIAL] Insulin Glargine,Hum.rec.anlog 40 unit SQ QHS 03/30/13 06/19/17 06/18/17 History [Lantus Solostar] Lisinopril [Zestril] 5 mg PO QDAY 03/30/13 06/19/17 06/18/17 History Omeprazole [Prilosec] 40 mg PO DAILY 03/30/13 06/19/17 06/18/17 History ARIPiprazole [Abilify] 30 mg PO DAILY 06/19/17 06/19/17 06/18/17 History Cholecalciferol (Vitamin D3) 1,000 unit PO BID 06/19/17 06/19/17 06/18/17 History [Vitamin D3] Divalproex Sodium [Depakote ER] 500 mg PO TID 06/19/17 06/19/17 06/18/17 History Active Meds: Active Medications Acetaminophen (Tylenol) 650 mg PO Q4H PRN PRN Reason: Pain, Mild (1-3) Bisacodyl (Dulcolax) 10 mg DC QDAY PRN PRN Reason: Constipation Carvedilol (Coreg) 12.5 mg PO DAILY BURAK Clopidogrel Bisulfate (Plavix) 75 mg PO DAILY BURAK Dextrose (D50w (25gm) Syringe) 50 ml IV PRN PRN PRN Reason: Hypoglycemia Divalproex Sodium (Depakote Er) 500 mg PO TID BURAK Enoxaparin Sodium (Lovenox) 40 mg SUB-Q QDAY B[place] Hydralazine HCl (Apresoline) 5 mg IV Q6H PRN PRN Reason: Keep SBP between 160-185 mm Hg Insulin Aspart (Novolog) 10 units SUB-Q HS BURAK Insulin Detemir (Levemir) 40 units SUB-Q QHS BURAK Lisinopril (Zestril) 5 mg PO QDAY BURAK Magnesium Hydroxide (Milk Of Magnesia) 30 ml PO Q4H PRN PRN Reason: Constipation Ondansetron HCl (Zofran) 4 mg IV Q8H PRN PRN Reason: N/V unrelieved by Reglan Sodium Chloride (Sodium Chloride Flush Syringe 10 Ml) 10 ml IV PRN PRN PRN Reason: LINE FLUSH Physical Examination - Vital Signs Vital Signs: Vital Signs Pulse Resp Pulse Ox 86 20 100 06/19/17 01:00 06/19/17 01:00 06/19/17 01:00 Results - Laboratory Findings CBC and BMP: 06/19/17 01:35 06/19/17 01:35 Abnormal Lab Findings: Abnormal Labs 06/19/17 06/19/17 06/19/17 01:35 01:35 01:35 RDW 16.6 H Cannon % (Auto) 7.7 H PT 12.1 L INR 0.86 L APTT 23.9 L Potassium 3.3 L BUN 24 H Glucose 64 L POC Glucose Total Protein 6.1 L Albumin 3.5 L TSH 06/19/17 06/19/17 06/19/17 01:35 03:27 04:20 RDW Cannon % (Auto) PT INR APTT Potassium BUN Glucose POC Glucose 110 H 138 H Total Protein Albumin TSH 4.790 H 06/19/17 08:30 RDW Cannon % (Auto) PT INR APTT Potassium BUN Glucose POC Glucose 164 H Total Protein Albumin TSH
[2017-06-19] MEDS: LOVENOX SUB-Q SCH (14:09)
[2017-06-19] MEDS: PLAVIX PO SCH (17:15)
[2017-06-19] MEDS ORDERED: NOVOLOG SUB-Q SCH (22:00)
[2017-06-19] MEDS ORDERED: LEVEMIR SUB-Q SCH (22:00)
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
[2017-06-20 06:24] LABS: Anion Gap 14 mmol/L; BUN/Creatinine Ratio 19; Blood Urea Nitrogen 15 mg/dL (7-17); Calcium 8.8 mg/dL (8.4-10.2); Carbon Dioxide 28 mmol/L (22-30); Chloride 101.6 mmol/L (98-107); Cholesterol 123 mg/dL (50-199); Glucose 235 mg/dL (65-100); HDL Cholesterol 26 mg/dL (40-59); LDL Cholesterol,Direct 77 mg/dL (50-130); Potassium 3.9 mmol/L (3.6-5.0); Sodium 140 mmol/L (137-145); Triglycerides 103 mg/dL (2-149)
[2017-06-20 13:37] VITALS: BP 117/65
--- NOTE | 2017-06-20 13:53 | Discharge Summary ---
Providers - Providers Date of Admission: 06/19/17 06:11 Date of discharge: 06/20/17 Attending physician: JHONNY MANDUJANO 06/19/17 06:11 Occupational Therapy Evaluate and Treat [CONS] Routine Comment: Reason For Exam: Neuro deficits Physical Therapy Evaluation and Treat [CONS] Routine Comment: Reason For Exam: Neuro deficits 06/19/17 06:23 Consult to Physician [CONS] Routine Consulting Provider: ASYA CASTILLO Reason For Exam: tia/cva Place consult to:: NEURO Notified:: Y Was contact made?: Yes If yes, spoke with:: JARAD Nicole/Mitchel Time called:: 08:10 Primary care physician: WAGON DRILLER Hospitalization Reason for admission: Hypoglycemia/Rt hand parasthesia Condition: Stable Pertinent studies: CT head wo : negative MRI brain : normal Carotid doppler : < 50% stenosis ECHO : Mod.LVH, LVEF 50-55% Hospital course: Patient was admitted with hypoglycemia and Rt arm parasthesia. Had extensive neuro work up which was negative as mentioned above Seen by Neurrology, managed as TIA. symptoms significantly improved. Today is comfortable,no new complaints Vitals stable,Physical exam is unremarkable. Patient is stable at discharge. Discharge Diagnosis: --Transient Ischemic Attack [TIA] --Hypertension --Type 2 DM --Dyslipidemia --Hypoglycemic episode Disposition: - TO HOME OR SELFCARE Time spent for discharge: 32 min Core Measure Documentation - Palliative Care Palliative Care/ Comfort Measures: Not Applicable - Core Measures Any of the following diagnoses?: none Exam - Constitutional Vitals: Temp Pulse Resp BP Pulse Ox 99.7 F H 109 H 20 117/65 95 06/20/17 09:05 06/20/17 09:05 06/20/17 09:05 06/20/17 09:05 06/20/17 09:05 General appearance: Present: no acute distress, well-nourished, obese - EENT Eyes: Present: PERRL, EOM intact - Neck Neck: Present: supple, normal ROM - Respiratory Respiratory effort: normal Respiratory: bilateral: diminished, negative: rales, rhonchi, wheezing - Cardiovascular Rhythm: regular Heart Sounds: Present: S1 & S2 - Extremities Extremities: no ischemia, No edema - Abdominal General gastrointestinal: Present: soft, non-tender, non-distended, normal bowel sounds - Integumentary Integumentary: Present: clear, warm - Musculoskeletal Musculoskeletal: strength equal bilaterally - Psychiatric Psychiatric: appropriate mood/affect, cooperative - Neurologic Neurologic: CNII-XII intact, moves all extremities Plan Activity: no restrictions Weight Bearing Status: Weight Bear as Tolerated Diet: diabetic Additional Instructions: if you have any chest pain or shortness of breath , contact MD or go to ER Follow up with: PRIMARY CARE, [Primary Care Provider] - 3-5 Days ASYA CASTILLO MD [Staff Physician] - 7 Days Prescriptions: Clopidogrel [Plavix] 75 mg PO DAILY #30 tablet
[2017-06-20] MEDS: LOVENOX SUB-Q SCH (14:15)
[2017-06-20] MEDS: ZESTRIL PO SCH (14:16)
[2017-06-20] MEDS: PLAVIX PO SCH (14:16)
[2017-06-20] MEDS: COREG PO SCH (14:17)
--- NOTE | 2017-06-21 15:21 | Vascular Lab Report ---
CAROTID DUPLEX STUDY: RIGHT PSVEDV CCA [id number] CCA DIST:[id number] ICA PROX:8926 ICA MID:[id number] ICA DIST:[id number] ECA: [id number] VERT: 69 15 LEFT PSVEDV CCA PROX:[id number] CCA DIST:9623 ICA PROX:51774 ICA MID:[id number] ICA DIST:[id number] ECA: [id number] VERT: 67 21 REASON FOR EXAM: Stroke and left sided weakness. COMMENTS ON THE RIGHT: Scattered plaque is present in the carotid bulb. Doppler frequency analysis is consistent with 16 to 49 percent diameter reduction of the internal carotid artery. The common carotid artery is patent. The external carotid artery is patent. The vertebral artery has antegrade flow. COMMENTS ON THE LEFT: Scattered plaque is present in the carotid bulb. Doppler frequency analysis is consistent with 16 to 49 percent diameter reduction of the internal carotid artery. The common carotid artery is patent. The external carotid artery is patent. The vertebral artery has antegrade flow. IMPRESSION: Less than 50% diameter reduction in the internal carotid arteries bilaterally. Consider repeat carotid artery duplex in 12 months.
== END 2017-06-20 17:53 | disposition home or self-care (01) | DRG 69 ==
LOC: ED 00:52 → 4A 06:11
PROVIDERS: ADMIT Internal Medicine; ATTEND Internal Medicine
DX: G45.9 Transient cerebral ischemic attack, unspecified (principal); F20.9 Schizophrenia, unspecified; I10 Essential (primary) hypertension; K21.9 Gastro-esophageal reflux disease without esophagitis; F31.9 Bipolar disorder, unspecified; E78.5 Hyperlipidemia, unspecified; E11.649 Type 2 diabetes mellitus with hypoglycemia without coma; R94.31 Abnormal electrocardiogram [ECG] [EKG]; Z82.49 Family history of ischemic heart disease and other diseases of the circulatory system; Z90.49 Acquired absence of other specified parts of digestive tract; Z79.82 Long term (current) use of aspirin; Z79.4 Long term (current) use of insulin; Z79.899 Other long term (current) drug therapy; Z88.0 Allergy status to penicillin; Z88.1 Allergy status to other antibiotic agents
CPT/HCPCS: 36415; 70450; 70551; 80048; 80053; 80061; 80164; 81001; 82962; 83735; 84443; 84484; 85025; 85610; 85730; 93005; 93010; 93306; 93880; 96374; J0360; J1650; J1818

== ENCOUNTER 2017-07-27 12:31 | Emergency (ER) | payer MEDICARE ==
[2017-07-27 13:11] VITALS: BP 112/46
[2017-07-27 13:31] LABS: Basophils % (Auto) 0.8 % (0.0-1.8); Eosinophils # (Auto) 0.1 K/mm3 (0.0-0.4); Eosinophils % (Auto) 1.7 % (0.0-4.3); Hematocrit 34.7 % (30.3-42.9); Hemoglobin 11.3 gm/dl (10.1-14.3); Lymphocytes # (Auto) 1.5 K/mm3 (1.2-5.4); Lymphocytes % (Auto) 28.7 % (13.4-35.0); Mean Corpuscular HGB Conc 33 % (30-34); Mean Corpuscular Hemoglobin 28 pg (28-32); Mean Corpuscular Volume 86 fl (79-97); Monocytes # (Auto) 0.3 K/mm3 (0.0-0.8); Monocytes % (Auto) 5.5 % (0.0-7.3); Platelet Count 230 K/mm3 (140-440); Red Blood Count 4.02 M/mm3 (3.65-5.03)
[2017-07-27 13:41] LABS: BUN/Creatinine Ratio 16; Blood Urea Nitrogen 16 mg/dL (7-17); Hemolysis Index 21
[2017-07-27 16:14] LABS: Bilirubin,Urine Negative (Negative); Color,Urine Yellow (Yellow)
[2017-07-27 16:15] LABS: Blood,Urine Moderate (Negative); Nitrite,Urine Negative (Negative); Urobilinogen,Urine < 2.0 mg/dL (<2.0)
[2017-07-27 16:16] LABS: Mucus,Urine 1+ /HPF
== END 2017-07-28 00:28 | disposition left against medical advice (07) ==
LOC: ED 12:31
DX: R51 Headache (principal); R42 Dizziness and giddiness; Z53.21 Procedure and treatment not carried out due to patient leaving prior to being seen by health care provider
CPT/HCPCS: 36415; 80048; 81001; 82962; 85025

== ENCOUNTER 2017-08-01 16:24 | Emergency (ER) | payer MEDICARE ==
[2017-08-01 17:16] LABS: Basophils % (Auto) 1.1 % (0.0-1.8); Eosinophils % (Auto) 0.3 % (0.0-4.3); Hematocrit 34.6 % (30.3-42.9); Hemoglobin 11.3 gm/dl (10.1-14.3); Lymphocytes # (Auto) 1.1 K/mm3 (1.2-5.4); Lymphocytes % (Auto) 30.2 % (13.4-35.0); Mean Corpuscular HGB Conc 33 % (30-34); Mean Corpuscular Hemoglobin 28 pg (28-32); Mean Corpuscular Volume 84 fl (79-97); Monocytes # (Auto) 0.4 K/mm3 (0.0-0.8); Monocytes % (Auto) 10.8 % (0.0-7.3); Platelet Count 171 K/mm3 (140-440); Red Blood Count 4.11 M/mm3 (3.65-5.03)
[2017-08-01 17:24] LABS: Calcium 8.8 mg/dL (8.4-10.2)
[2017-08-01] MEDS ORDERED: NACL 0.9% 1000 ML 1,000 ML ONE (17:50)
[2017-08-01] MEDS ORDERED: NACL 0.9% 1000 ML 1,000 ML IV ONE (17:50)
--- NOTE | 2017-08-01 17:57 | XRay Report ---
FINAL REPORT EXAM: XR CHEST 1V AP HISTORY: Shortness of breath TECHNIQUE: upright single view chest PRIORS: Comparison is April 17, 2017 FINDINGS: Cardiac and mediastinal contours are unremarkable. No focal pulmonary infiltrate is identified. No pleural fluid collection seen. Pulmonary vasculature is unremarkable. IMPRESSION: Negative single-view chest
--- NOTE | 2017-08-01 18:30 | Emergency Department Report ---
ED Shortness of Breath HPI - General Chief Complaint: Dyspnea/Respdistress Stated Complaint: SHORTNESS OF BREATH Time Seen by Provider: 08/01/17 17:38 Source: patient Mode of arrival: Ambulatory Limitations: No Limitations - History of Present Illness Initial Comments: 62 -year-old female with a history of hypertension, diabetes, GERD, hyperlipidemia, bipolar, schizophrenia, and hypoglycemia who states that she was in her usual state of health last night when she began to have shortness of breath as well as chest tightening. She also reports having sore throat as well. She also reports a subjective fever with chills. She denies any nausea vomiting or diarrhea. She does seem drowsy as well. She states that she has no energy. MD Complaint: shortness of breath, cough (nonproductive) -: Gradual Radiation: other (none) Severity: moderate Quality: other (chest tightness) Consistency: constant Improves With: nothing Worsens With: nothing Associated Symptoms: chest pain, fever, cough, other (sore throat) Treatments Prior to Arrival: none - Related Data Home Oxygen Therapy: No Home Medications Medication Instructions Recorded Confirmed Last Taken Aspirin [Aspirin BABY CHEW TAB] 81 mg PO QDAY 03/30/13 06/19/17 06/18/17 Carvedilol [Coreg] 12.5 mg PO DAILY 03/30/13 06/19/17 06/18/17 Insulin Aspart [NovoLOG 100 10 units SC HS 03/30/13 06/19/17 06/18/17 UNITS/ML VIAL] Insulin Glargine,Hum.rec.anlog 40 unit SQ QHS 03/30/13 06/19/17 06/18/17 [Lantus Solostar] Lisinopril [Zestril TAB] 5 mg PO QDAY 03/30/13 06/19/17 06/18/17 Omeprazole [PriLOSEC] 40 mg PO DAILY 03/30/13 06/19/17 06/18/17 ARIPiprazole [Abilify] 30 mg PO DAILY 06/19/17 06/19/17 06/18/17 Cholecalciferol (Vitamin D3) 1,000 unit PO BID 06/19/17 06/19/17 06/18/17 [Vitamin D3] Divalproex Sodium [Depakote ER] 500 mg PO TID 06/19/17 06/19/17 06/18/17 Previous Rx's Medication Instructions Recorded Last Taken Type Clopidogrel [Plavix] 75 mg PO DAILY #30 tablet 06/20/17 Unknown Rx ALBUTEROL Inhaler [ProAir HFA 2 puff IH QID PRN #1 inhalation 08/01/17 Unknown Rx Inhaler] Hycodan Cough Syrup 5 ml PO BID #150 ml 08/01/17 Unknown Rx Oseltamivir [Tamiflu] 75 mg PO BID 5 Days #20 cap 08/01/17 Unknown Rx Allergies Allergy/AdvReac Type Severity Reaction Status Date / Time amoxicillin [Amoxicillin] Allergy Rash Verified 12/21/13 20:30 ibuprofen [From Advil] Allergy Rash Verified 12/21/13 20:31 metformin Allergy Rash Verified 03/30/13 04:12 Penicillins Allergy Rash Verified 12/21/13 20:30 ED Review of Systems ROS: Stated complaint: SHORTNESS OF BREATH Other details as noted in HPI Comment: All other systems reviewed and negative Constitutional: chills, fever, weakness Eyes: as per HPI ENT: throat pain, congestion Respiratory: see HPI, cough Cardiovascular: chest pain, dyspnea on exertion Endocrine: see HPI Gastrointestinal: as per HPI. denies: abdominal pain, nausea, vomiting Genitourinary: as per HPI Musculoskeletal: as per HPI Skin: as per HPI Neurological: as per HPI, weakness Psychiatric: as per HPI Hematological/Lymphatic: as per HPI ED Past Medical Hx - Past Medical History Previous Medical History?: Yes Hx Hypertension: Yes Hx CVA: No Hx Heart Attack/AMI: No Hx Congestive Heart Failure: No Hx Diabetes: Yes Hx Deep Vein Thrombosis: No Hx Pulmonary Embolism: No Hx GERD: Yes Hx Liver Disease: No Hx Renal Disease: No Hx Sickle Cell Disease: No Hx Arthritis: No Hx Seizures: No Hx Kidney Stones: No Hx Psychiatric Treatment: Yes (schizophrenia, Bipolar) Hx Asthma: No Hx COPD: No Hx Tuberculosis: No Hx Dementia: No Hx HIV: No Additional medical history: HIGH CHOLESTEROL. Bipolar and schizophrenia - Surgical History Past Surgical History?: Yes Hx Coronary Stent: No Hx Open Heart Surgery: No Hx Pacemaker: No Hx Internal Defibrillator: No Hx Cholecystectomy: Yes Hx Appendectomy: No Hx Breast Surgery: No Additional Surgical History: rt hand surgery,tonsilectomy - Social History Smoking Status: Never Smoker Substance Use Type: None - Medications Home Medications: Home Medications Medication Instructions Recorded Confirmed Last Taken Type Aspirin [Aspirin BABY CHEW TAB] 81 mg PO QDAY 03/30/13 06/19/17 06/18/17 History Carvedilol [Coreg] 12.5 mg PO DAILY 03/30/13 06/19/17 06/18/17 History Insulin Aspart [NovoLOG 100 10 units SC HS 03/30/13 06/19/17 06/18/17 History UNITS/ML VIAL] Insulin Glargine,Hum.rec.anlog 40 unit SQ QHS 03/30/13 06/19/17 06/18/17 History [Lantus Solostar] Lisinopril [Zestril TAB] 5 mg PO QDAY 03/30/13 06/19/17 06/18/17 History Omeprazole [PriLOSEC] 40 mg PO DAILY 03/30/13 06/19/17 06/18/17 History ARIPiprazole [Abilify] 30 mg PO DAILY 06/19/17 06/19/17 06/18/17 History Cholecalciferol (Vitamin D3) 1,000 unit PO BID 06/19/17 06/19/17 06/18/17 History [Vitamin D3] Divalproex Sodium [Depakote ER] 500 mg PO TID 06/19/17 06/19/17 06/18/17 History Clopidogrel [Plavix] 75 mg PO DAILY #30 tablet 06/20/17 Unknown Rx ALBUTEROL Inhaler [ProAir HFA 2 puff IH QID PRN #1 inhalation 08/01/17 Unknown Rx Inhaler] Hycodan Cough Syrup 5 ml PO BID #150 ml 08/01/17 Unknown Rx Oseltamivir [Tamiflu] 75 mg PO BID 5 Days #20 cap 08/01/17 Unknown Rx ED Physical Exam - General Limitations: No Limitations General appearance: other (she is alert and will answer questions and is drowsy. She is able to follow commands appropriately.) - Head Head exam: Present: atraumatic, normocephalic - Eye Eye exam: Present: normal appearance - ENT ENT exam: Present: other (some mild pharyngeal erythema is present) - Neck Neck exam: Present: normal inspection - Respiratory Respiratory exam: Present: normal lung sounds bilaterally. Absent: respiratory distress, wheezes, rales - Cardiovascular Cardiovascular Exam: Present: regular rate, normal rhythm. Absent: bradycardia , tachycardia - GI/Abdominal GI/Abdominal exam: Present: soft, normal bowel sounds. Absent: distended, tenderness - Rectal Rectal exam: Present: deferred - Extremities Exam Extremities exam: Present: normal inspection, full ROM - Back Exam Back exam: Present: normal inspection, full ROM - Neurological Exam Neurological exam: Present: alert, oriented X3, CN II-XII intact - Psychiatric Psychiatric exam: Present: flat affect - Skin Skin exam: Present: warm, dry ED Course Vital Signs 08/01/17 08/01/17 08/01/17 16:36 16:57 17:00 Temperature 98.9 F Pulse Rate 90 86 82 Respiratory 16 20 27 H Rate Blood Pressure 86/48 103/49 103/49 Blood Pressure 86/63 [Left] O2 Sat by Pulse 98 96 95 Oximetry 08/01/17 08/01/17 08/01/17 17:16 17:30 17:45 Temperature Pulse Rate 84 88 82 Respiratory 22 18 16 Rate Blood Pressure 86/63 86/63 Blood Pressure 113/54 [Left] O2 Sat by Pulse 94 97 96 Oximetry 08/01/17 08/01/17 08/01/17 17:46 17:52 18:00 Temperature Pulse Rate 83 82 Respiratory 16 16 27 H Rate Blood Pressure 86/63 113/54 Blood Pressure [Left] O2 Sat by Pulse 95 97 96 Oximetry 08/01/17 08/01/17 08/01/17 18:15 18:30 19:34 Temperature Pulse Rate 83 81 82 Respiratory 31 H 25 H 13 Rate Blood Pressure 136/54 155/56 155/56 Blood Pressure [Left] O2 Sat by Pulse 92 94 96 Oximetry 08/01/17 08/01/17 08/01/17 19:45 20:00 20:16 Temperature Pulse Rate 84 82 81 Respiratory 12 19 15 Rate Blood Pressure 153/64 153/64 153/64 Blood Pressure [Left] O2 Sat by Pulse 100 96 96 Oximetry 08/01/17 08/01/17 20:30 20:45 Temperature Pulse Rate 82 83 Respiratory 20 31 H Rate Blood Pressure 153/64 153/64 Blood Pressure [Left] O2 Sat by Pulse 98 96 Oximetry - Reevaluation(s) Reevaluation #1: 08/01/17 18:31 Her blood pressure initially when she came in was 86/48. She was afebrile as well as triage. At this time I'll go ahead and get basic blood work as well as check her for influenza and strep throat. She is a diabetic as well. She also takes Depakote and Plavix. 08/01/17 22:09 Her d-dimer was elevated so we did a CT angiogram of her chest to rule out a pulmonary embolism. This turned out to be negative. Also her strep test was negative however her influenza test revealed positivity for influenza A. We gave her Tamiflu 75 mg by mouth here. She does not have any leukocytosis and otherwise seems to be okay despite some weakness that is probably related to the influenza infection. Her vital signs are stable although she did get upset whenever she found out she was positive for flu. I believe she has some baseline anxiety due to her psychiatric conditions. This time she is okay to discharge home and she can follow-up with her primary care doctor or return here as needed if her condition acutely declines. 08/01/17 22:11 ED Medical Decision Making - Lab Data Result diagrams: 08/01/17 17:01 08/01/17 17:01 Critical care attestation.: If time is entered above; I have spent that time in minutes in the direct care of this critically ill patient, excluding procedure time. ED Disposition Clinical Impression: Influenza A Disposition: DC-01 TO HOME OR SELFCARE Is pt being admited?: No Does the pt Need Aspirin: No Condition: Stable Instructions: Influenza (ED) Additional Instructions: Rest, fluids, Tylenol for fever, follow up with the primary care doctor, return as needed, if he feels like a life-threatening emergency, 911 or proceed to the nearest emergency room. Take medications as instructed. Prescriptions: ALBUTEROL Inhaler [ProAir HFA Inhaler] 2 puff IH QID PRN #1 inhalation PRN Reason: Shortness Of Breath Hycodan Cough Syrup 5 ml PO BID #150 ml Oseltamivir [Tamiflu] 75 mg PO BID 5 Days #20 cap
[2017-08-01 19:00] LABS: Creatine Kinase MB < 1.0 ng/mL (0.0-4.0)
[2017-08-01 19:28] LABS: Bilirubin,Urine NEG (Negative); Blood,Urine SM (Negative); Color,Urine Yellow (Yellow); Mucus,Urine FEW /HPF; Nitrite,Urine NEG (Negative)
[2017-08-01] MEDS ORDERED: LIDOCAINE VISCOUS 2% PO ONE (19:39)
[2017-08-01] MEDS ORDERED: TAMIFLU PO ONE (20:00)
[2017-08-01] MEDS ORDERED: MORPHINE IV ONE (21:58)
[2017-08-01] MEDS ORDERED: ZOFRAN IV ONE (21:58)
--- NOTE | 2017-08-01 22:00 | Cat Scan Report ---
FINAL REPORT EXAM: CT ANGIO CHEST HISTORY: shortness of breath, increased d-dimer TECHNIQUE: CT chest CT angiogram with reconstructions PRIORS: None. FINDINGS: There is no evidence of filling defect within the central pulmonary vasculature to suggest the presence of acute pulmonary embolus. No evidence of mediastinal pathologic lymph node enlargement Heart and great vessels are unremarkable. The aorta is normal in caliber. No focal pulmonary infiltrate identified. No pleural fluid collection seen. No acute pulmonary abnormality noted. Visualized portion of the upper abdomen demonstrates no acute change. IMPRESSION: Negative. No CT evidence of acute pulmonary embolus
[2017-08-01 22:26] VITALS: BP 159/66
[2017-08-01] MEDS ORDERED: TYLENOL PO ONE (22:36)
== END 2017-08-01 22:50 | disposition home or self-care (01) ==
LOC: ED 16:24
DX: J11.1 Influenza due to unidentified influenza virus with other respiratory manifestations (principal); I10 Essential (primary) hypertension; E11.9 Type 2 diabetes mellitus without complications; K21.9 Gastro-esophageal reflux disease without esophagitis
CPT/HCPCS: 36415; 71045; 71275; 80048; 81001; 82550; 82553; 83735; 84484; 85025; 85379; 87116; 87400; 87430; 93005; 93010; 96361; 96374; 96375; 99284; J2270; J2405; J7030; Q9967

== ENCOUNTER 2017-10-08 16:56 | Emergency (ER) | payer MEDICARE, OTHER ==
[2017-10-08] MEDS ORDERED: HumuLIN R IV ONE (17:31)
[2017-10-08] MEDS ORDERED: TYLENOL PO ONE (17:31)
[2017-10-08] MEDS ORDERED: NACL 0.9% 1000 ML 1,000 ML IV ONE (17:31)
--- NOTE | 2017-10-08 17:34 | Emergency Department Report ---
ED General Adult HPI - General Chief complaint: Hyperglycemia Stated complaint: HYPERGLYCEMIA Time Seen by Provider: 10/08/17 17:26 Source: EMS Mode of arrival: Stretcher Limitations: No Limitations - History of Present Illness Initial comments: Patient is a 62-year-old female who got a history of insulin dependant diabetes who is complaining of headache. Patient states that around noon today she checked her sugar and it was elevated. Patient took 30 units of her insulin and an 8. Patient then continued to have some increased headaches and patient took her blood sugar again and it had risen to the 400 range. Patient is complaining of mild global headache as a 5 out of 10 in severity as well as some dizziness. Patient denies any fevers chills nausea vomiting abdominal pain. Patient states that she has some urinary frequency and increased thirst last several days. Location: head Severity scale (0 -10): 5 Quality: aching Consistency: constant Associated Symptoms: headaches, weakness. denies: confusion, chest pain, cough , diaphoresis, fever/chills, loss of appetite, malaise, nausea/vomiting, rash, seizure, shortness of breath, syncope - Related Data Home Medications Medication Instructions Recorded Confirmed Last Taken Aspirin [Aspirin BABY CHEW TAB] 81 mg PO QDAY 03/30/13 06/19/17 06/18/17 Carvedilol [Coreg] 12.5 mg PO DAILY 03/30/13 06/19/17 06/18/17 Insulin Aspart [NovoLOG 100 10 units SC HS 03/30/13 06/19/17 06/18/17 UNITS/ML VIAL] Insulin Glargine,Hum.rec.anlog 40 unit SQ QHS 03/30/13 06/19/17 06/18/17 [Lantus Solostar] Lisinopril [Zestril TAB] 5 mg PO QDAY 03/30/13 06/19/17 06/18/17 Omeprazole [PriLOSEC] 40 mg PO DAILY 03/30/13 06/19/17 06/18/17 ARIPiprazole [Abilify] 30 mg PO DAILY 06/19/17 06/19/17 06/18/17 Cholecalciferol (Vitamin D3) 1,000 unit PO BID 06/19/17 06/19/17 06/18/17 [Vitamin D3] Divalproex Sodium [Depakote ER] 500 mg PO TID 06/19/17 06/19/17 06/18/17 Previous Rx's Medication Instructions Recorded Last Taken Type Clopidogrel [Plavix] 75 mg PO DAILY #30 tablet 06/20/17 Unknown Rx ALBUTEROL Inhaler [ProAir HFA 2 puff IH QID PRN #1 inhalation 08/01/17 Unknown Rx Inhaler] Hycodan Cough Syrup 5 ml PO BID #150 ml 08/01/17 Unknown Rx Oseltamivir [Tamiflu] 75 mg PO BID 5 Days #20 cap 08/01/17 Unknown Rx Allergies Allergy/AdvReac Type Severity Reaction Status Date / Time amoxicillin [Amoxicillin] Allergy Rash Verified 12/21/13 20:30 ibuprofen [From Advil] Allergy Rash Verified 12/21/13 20:31 metformin Allergy Rash Verified 03/30/13 04:12 Penicillins Allergy Rash Verified 12/21/13 20:30 ED Review of Systems ROS: Stated complaint: HYPERGLYCEMIA Other details as noted in HPI Comment: All other systems reviewed and negative ED Past Medical Hx - Past Medical History Hx Hypertension: Yes Hx CVA: No Hx Heart Attack/AMI: No Hx Congestive Heart Failure: No Hx Diabetes: Yes Hx Deep Vein Thrombosis: No Hx Pulmonary Embolism: No Hx GERD: Yes Hx Liver Disease: No Hx Renal Disease: No Hx Sickle Cell Disease: No Hx Arthritis: No Hx Seizures: No Hx Kidney Stones: No Hx Psychiatric Treatment: Yes (schizophrenia, Bipolar) Hx Asthma: No Hx COPD: No Hx Tuberculosis: No Hx Dementia: No Hx HIV: No Additional medical history: HIGH CHOLESTEROL. Bipolar and schizophrenia - Surgical History Hx Coronary Stent: No Hx Open Heart Surgery: No Hx Pacemaker: No Hx Internal Defibrillator: No Hx Cholecystectomy: Yes Hx Appendectomy: No Hx Breast Surgery: No Additional Surgical History: rt hand surgery,tonsilectomy - Social History Smoking Status: Never Smoker Substance Use Type: None - Medications Home Medications: Home Medications Medication Instructions Recorded Confirmed Last Taken Type Aspirin [Aspirin BABY CHEW TAB] 81 mg PO QDAY 03/30/13 06/19/17 06/18/17 History Carvedilol [Coreg] 12.5 mg PO DAILY 03/30/13 06/19/17 06/18/17 History Insulin Aspart [NovoLOG 100 10 units SC HS 03/30/13 06/19/17 06/18/17 History UNITS/ML VIAL] Insulin Glargine,Hum.rec.anlog 40 unit SQ QHS 03/30/13 06/19/17 06/18/17 History [Lantus Solostar] Lisinopril [Zestril TAB] 5 mg PO QDAY 03/30/13 06/19/17 06/18/17 History Omeprazole [PriLOSEC] 40 mg PO DAILY 03/30/13 06/19/17 06/18/17 History ARIPiprazole [Abilify] 30 mg PO DAILY 06/19/17 06/19/17 06/18/17 History Cholecalciferol (Vitamin D3) 1,000 unit PO BID 06/19/17 06/19/17 06/18/17 History [Vitamin D3] Divalproex Sodium [Depakote ER] 500 mg PO TID 06/19/17 06/19/17 06/18/17 History Clopidogrel [Plavix] 75 mg PO DAILY #30 tablet 06/20/17 Unknown Rx ALBUTEROL Inhaler [ProAir HFA 2 puff IH QID PRN #1 inhalation 08/01/17 Unknown Rx Inhaler] Hycodan Cough Syrup 5 ml PO BID #150 ml 08/01/17 Unknown Rx Oseltamivir [Tamiflu] 75 mg PO BID 5 Days #20 cap 08/01/17 Unknown Rx ED Physical Exam - General Limitations: No Limitations General appearance: alert, in no apparent distress - Head Head exam: Present: atraumatic, normocephalic - Eye Eye exam: Present: normal appearance - ENT ENT exam: Present: mucous membranes moist - Neck Neck exam: Present: normal inspection - Respiratory Respiratory exam: Present: normal lung sounds bilaterally. Absent: respiratory distress - Cardiovascular Cardiovascular Exam: Present: regular rate, normal rhythm. Absent: systolic murmur, diastolic murmur, rubs, gallop - GI/Abdominal GI/Abdominal exam: Present: soft, normal bowel sounds - Extremities Exam Extremities exam: Present: normal inspection - Back Exam Back exam: Present: normal inspection - Neurological Exam Neurological exam: Present: alert, oriented X3 - Psychiatric Psychiatric exam: Present: normal affect, normal mood - Skin Skin exam: Present: warm, dry, intact, normal color. Absent: rash ED Course Vital Signs 10/08/17 10/08/17 17:18 18:55 Temperature 98.9 F 98.8 F Pulse Rate 81 79 Respiratory 16 18 Rate Blood Pressure 101/50 Blood Pressure 112/51 [Left] O2 Sat by Pulse 99 96 Oximetry ED Medical Decision Making - Lab Data Result diagrams: 10/08/17 18:19 10/08/17 18:19 Lab Results 10/08/17 10/08/17 10/08/17 Range/Units 18:13 18:19 18:19 WBC 3.8 L (4.5-11.0) K/mm3 RBC 2.69 L (3.65-5.03) M/mm3 Hgb 7.4 L (10.1-14.3) gm/dl Hct 22.8 L (30.3-42.9) % MCV 85 (79-97) fl MCH 27 L (28-32) pg MCHC 32 (30-34) % RDW 15.3 H (13.2-15.2) % Plt Count 163 (140-440) K/mm3 Add Manual Diff Complete Total Counted 100 Seg Neuts % (Manual) 59.0 (40.0-70.0) % Band Neutrophils % 0 % Lymphocytes % (Manual) 37.0 H (13.4-35.0) % Reactive Lymphs % (Man) 0 % Monocytes % (Manual) 1.0 (0.0-7.3) % Eosinophils % (Manual) 3.0 (0.0-4.3) % Basophils % (Manual) 0 (0.0-1.8) % Metamyelocytes % 0 % Myelocytes % 0 % Promyelocytes % 0 % Blast Cells % 0 % Nucleated RBC % Not Reportable Seg Neutrophils # Man 2.2 (1.8-7.7) K/mm3 Band Neutrophils # 0.0 K/mm3 Lymphocytes # (Manual) 1.4 (1.2-5.4) K/mm3 Abs React Lymphs (Man) 0.0 K/mm3 Monocytes # (Manual) 0.0 (0.0-0.8) K/mm3 Eosinophils # (Manual) 0.1 (0.0-0.4) K/mm3 Basophils # (Manual) 0.0 (0.0-0.1) K/mm3 Metamyelocytes # 0.0 K/mm3 Myelocytes # 0.0 K/mm3 Promyelocytes # 0.0 K/mm3 Blast Cells # 0.0 K/mm3 WBC Morphology Not Reportable Hypersegmented Neuts Not Reportable Hyposegmented Neuts Not Reportable Hypogranular Neuts Not Reportable Smudge Cells Not Reportable Toxic Granulation Not Reportable Toxic Vacuolation Not Reportable Dohle Bodies Not Reportable Pelger-Huet Anomaly Not Reportable Deny Rods Not Reportable Platelet Estimate Appears normal Clumped Platelets Not Reportable Plt Clumps, EDTA Not Reportable Large Platelets Not Reportable Giant Platelets Not Reportable Platelet Satelliting Not Reportable Plt Morphology Comment Not Reportable RBC Morphology Normal Dimorphic RBCs Not Reportable Polychromasia Not Reportable Hypochromasia Not Reportable Poikilocytosis Not Reportable Anisocytosis Not Reportable Microcytosis Not Reportable Macrocytosis Not Reportable Spherocytes Not Reportable Pappenheimer Bodies Not Reportable Sickle Cells Not Reportable Target Cells Not Reportable Tear Drop Cells Not Reportable Ovalocytes Not Reportable Helmet Cells Not Reportable [place] Bodies Not Reportable [place] Rings Not Reportable Michael Cells Not Reportable Bite Cells Not Reportable Crenated Cell Not Reportable Elliptocytes Not Reportable Acanthocytes (Spur) Not Reportable Rouleaux Not Reportable Hemoglobin C Crystals Not Reportable Schistocytes Not Reportable Malaria parasites Not Reportable Inocencio Bodies Not Reportable Hem Pathologist Commnt No VBG pH (7.320-7.420) Sodium 142 (137-145) mmol/L Potassium 3.0 L (3.6-5.0) mmol/L Chloride 106.2 (98-107) mmol/L Carbon Dioxide 22 (22-30) mmol/L Anion Gap 17 mmol/L BUN 18 H (7-17) mg/dL Creatinine 0.9 (0.7-1.2) mg/dL Estimated GFR > 60 ml/min BUN/Creatinine Ratio 20 % Glucose 222 H (65-100) mg/dL POC Glucose 335 H (70-105) Calcium 6.7 L (8.4-10.2) mg/dL 10/08/17 Range/Units 18:19 WBC (4.5-11.0) K/mm3 RBC (3.65-5.03) M/mm3 Hgb (10.1-14.3) gm/dl Hct (30.3-42.9) % MCV (79-97) fl MCH (28-32) pg MCHC (30-34) % RDW (13.2-15.2) % Plt Count (140-440) K/mm3 Add Manual Diff Total Counted Seg Neuts % (Manual) (40.0-70.0) % Band Neutrophils % % Lymphocytes % (Manual) (13.4-35.0) % Reactive Lymphs % (Man) % Monocytes % (Manual) (0.0-7.3) % Eosinophils % (Manual) (0.0-4.3) % Basophils % (Manual) (0.0-1.8) % Metamyelocytes % % Myelocytes % % Promyelocytes % % Blast Cells % % Nucleated RBC % Seg Neutrophils # Man (1.8-7.7) K/mm3 Band Neutrophils # K/mm3 Lymphocytes # (Manual) (1.2-5.4) K/mm3 Abs React Lymphs (Man) K/mm3 Monocytes # (Manual) (0.0-0.8) K/mm3 Eosinophils # (Manual) (0.0-0.4) K/mm3 Basophils # (Manual) (0.0-0.1) K/mm3 Metamyelocytes # K/mm3 Myelocytes # K/mm3 Promyelocytes # K/mm3 Blast Cells # K/mm3 WBC Morphology Hypersegmented Neuts Hyposegmented Neuts Hypogranular Neuts Smudge Cells Toxic Granulation Toxic Vacuolation Dohle Bodies Pelger-Huet Anomaly Deny Rods Platelet Estimate Clumped Platelets Plt Clumps, EDTA Large Platelets Giant Platelets Platelet Satelliting Plt Morphology Comment RBC Morphology Dimorphic RBCs Polychromasia Hypochromasia Poikilocytosis Anisocytosis Microcytosis Macrocytosis Spherocytes Pappenheimer Bodies Sickle Cells Target Cells Tear Drop Cells Ovalocytes Helmet Cells [place] Bodies [place] Rings Erick Cells Bite Cells Crenated Cell Elliptocytes Acanthocytes (Spur) Rouleaux Hemoglobin C Crystals Schistocytes Malaria parasites Inocencio Bodies Hem Pathologist Commnt VBG pH 7.331 (7.320-7.420) Sodium (137-145) mmol/L Potassium (3.6-5.0) mmol/L Chloride (98-107) mmol/L Carbon Dioxide (22-30) mmol/L Anion Gap mmol/L BUN (7-17) mg/dL Creatinine (0.7-1.2) mg/dL Estimated GFR ml/min BUN/Creatinine Ratio % Glucose (65-100) mg/dL POC Glucose (70-105) Calcium (8.4-10.2) mg/dL - Medical Decision Making Patient's glucose was decreasing after IV fluids. Patient states she was feeling better headache is resolved at 1935 patient be discharged home Critical care attestation.: If time is entered above; I have spent that time in minutes in the direct care of this critically ill patient, excluding procedure time. ED Disposition Clinical Impression: Hyperglycemia Headache Qualifiers: Headache type: tension-type Disposition: DC-01 TO HOME OR SELFCARE Is pt being admited?: No Does the pt Need Aspirin: No Condition: Stable Instructions: Diabetic Hyperglycemia (ED) Referrals: [facility] [Other] - 3-5 Days
[2017-10-08 18:36] LABS: Hematocrit 22.8 % (30.3-42.9); Hemoglobin 7.4 gm/dl (10.1-14.3); Mean Corpuscular HGB Conc 32 % (30-34); Mean Corpuscular Hemoglobin 27 pg (28-32); Mean Corpuscular Volume 85 fl (79-97); Platelet Count 163 K/mm3 (140-440); Red Blood Count 2.69 M/mm3 (3.65-5.03); Red Cell Distribution Width 15.3 % (13.2-15.2)
[2017-10-08 18:44] LABS: BUN/Creatinine Ratio 20; Blood Urea Nitrogen 18 mg/dL (7-17); Calcium 6.7 mg/dL (8.4-10.2); Hemolysis Index 12
[2017-10-08] MEDS ORDERED: K-DUR PO ONE (18:49)
[2017-10-08 19:24] LABS: Basophils % (Manual) 0 % (0.0-1.8); Total Cells Counted 100
[2017-10-08 19:25] LABS: RBC Morphology Normal
[2017-10-08 19:41] VITALS: BP 141/95
== END 2017-10-08 20:02 | disposition home or self-care (01) ==
LOC: ED 16:56
DX: E11.65 Type 2 diabetes mellitus with hyperglycemia (principal); Z79.82 Long term (current) use of aspirin; Z79.4 Long term (current) use of insulin; Z88.0 Allergy status to penicillin; Z88.1 Allergy status to other antibiotic agents; I10 Essential (primary) hypertension; E11.9 Type 2 diabetes mellitus without complications; K21.9 Gastro-esophageal reflux disease without esophagitis; F31.9 Bipolar disorder, unspecified; F20.9 Schizophrenia, unspecified; E78.00 Pure hypercholesterolemia, unspecified; Z90.49 Acquired absence of other specified parts of digestive tract
CPT/HCPCS: 36415; 80048; 82805; 82962; 85007; 85025; 96361; 96374; 99284; J7030; J1815

== ENCOUNTER 2017-11-07 04:12 | Emergency (ER) | payer MEDICARE, OTHER ==
[2017-11-07 05:23] LABS: Basophils # (Auto) 0.1 K/mm3 (0.0-0.1); Eosinophils # (Auto) 0.1 K/mm3 (0.0-0.4); Eosinophils % (Auto) 1.7 % (0.0-4.3); Hematocrit 31.9 % (30.3-42.9); Hemoglobin 10.7 gm/dl (10.1-14.3); Lymphocytes # (Auto) 2.1 K/mm3 (1.2-5.4); Mean Corpuscular HGB Conc 34 % (30-34); Mean Corpuscular Hemoglobin 28 pg (28-32); Mean Corpuscular Volume 82 fl (79-97); Monocytes # (Auto) 0.2 K/mm3 (0.0-0.8); Monocytes % (Auto) 4.6 % (0.0-7.3); Platelet Count 264 K/mm3 (140-440); Red Blood Count 3.91 M/mm3 (3.65-5.03); Red Cell Distribution Width 15.4 % (13.2-15.2)
[2017-11-07 05:47] LABS: BUN/Creatinine Ratio 23; Blood Urea Nitrogen 16 mg/dL (7-17); Calcium 9.2 mg/dL (8.4-10.2); Hemolysis Index 5
--- NOTE | 2017-11-07 09:46 | Emergency Department Report ---
Blank Doc - Documentation Documentation: patient with long history of diabetes, brought to er with glucose reading high, increase thirst, urination, and generalized weakness. patient has been compliant with her insulin regimen. no chest pain or sob.
[2017-11-07 10:12] LABS: Bacteria,Urine 1+ /HPF (Negative); Bilirubin,Urine NEG (Negative); Blood,Urine SM (Negative); Color,Urine Yellow (Yellow); Mucus,Urine FEW /HPF; Protein,Urine <15 mg/dL mg/dL (Negative); Urobilinogen,Urine < 2.0 mg/dL (<2.0)
[2017-11-07] MEDS ORDERED: HumuLIN R SUB-Q ONE (10:23)
--- NOTE | 2017-11-07 10:23 | Emergency Department Report ---
ED General Adult HPI - General Chief complaint: Dizziness Stated complaint: HIGH BLOOD PRESSURE,SUGAR Time Seen by Provider: 11/07/17 10:15 Source: patient Mode of arrival: Ambulatory Limitations: No Limitations - History of Present Illness Initial comments: Patient is 62 years old female history of diabetes on insulin and hypertension. Patient presented to the ER stating that her blood sugar was high it was more than 400s. The patient stated that she has been taking her medication schedule. She denied any headache, loss of consciousness or confusion, weakness or numbness or tingling sensation. She also denied any chest pain or shortness of breaths, cough or fever. No nausea or vomiting. -: Gradual - Related Data Home Medications Medication Instructions Recorded Confirmed Last Taken Aspirin [Aspirin BABY CHEW TAB] 81 mg PO QDAY 03/30/13 06/19/17 06/18/17 Carvedilol [Coreg] 12.5 mg PO DAILY 03/30/13 06/19/17 06/18/17 Insulin Aspart [NovoLOG 100 10 units SC HS 03/30/13 06/19/17 06/18/17 UNITS/ML VIAL] Insulin Glargine,Hum.rec.anlog 40 unit SQ QHS 03/30/13 06/19/17 06/18/17 [Lantus Solostar] Lisinopril [Zestril TAB] 5 mg PO QDAY 03/30/13 06/19/17 06/18/17 Omeprazole [PriLOSEC] 40 mg PO DAILY 03/30/13 06/19/17 06/18/17 ARIPiprazole [Abilify] 30 mg PO DAILY 06/19/17 06/19/17 06/18/17 Cholecalciferol (Vitamin D3) 1,000 unit PO BID 06/19/17 06/19/17 06/18/17 [Vitamin D3] Divalproex Sodium [Depakote ER] 500 mg PO TID 06/19/17 06/19/17 06/18/17 Previous Rx's Medication Instructions Recorded Last Taken Type Clopidogrel [Plavix] 75 mg PO DAILY #30 tablet 06/20/17 Unknown Rx ALBUTEROL Inhaler [ProAir HFA 2 puff IH QID PRN #1 inhalation 08/01/17 Unknown Rx Inhaler] Hycodan Cough Syrup 5 ml PO BID #150 ml 08/01/17 Unknown Rx Oseltamivir [Tamiflu] 75 mg PO BID 5 Days #20 cap 08/01/17 Unknown Rx Allergies Allergy/AdvReac Type Severity Reaction Status Date / Time amoxicillin [Amoxicillin] Allergy Rash Verified 12/21/13 20:30 ibuprofen [From Advil] Allergy Rash Verified 12/21/13 20:31 metformin Allergy Rash Verified 03/30/13 04:12 Penicillins Allergy Rash Verified 12/21/13 20:30 ED Review of Systems ROS: Stated complaint: HIGH BLOOD PRESSURE,SUGAR Other details as noted in HPI Comment: All other systems reviewed and negative Constitutional: denies: chills, fever Respiratory: denies: cough, orthopnea, shortness of breath, SOB with exertion, SOB at rest, wheezing Cardiovascular: denies: chest pain, palpitations, dyspnea on exertion Gastrointestinal: denies: abdominal pain, nausea, vomiting, diarrhea, constipation, hematemesis, melena, hematochezia Genitourinary: frequency. denies: urgency, dysuria Neurological: denies: headache, weakness, numbness, paresthesias, confusion, abnormal gait ED Past Medical Hx - Past Medical History Previous Medical History?: Yes Hx Hypertension: Yes Hx CVA: No Hx Heart Attack/AMI: No Hx Congestive Heart Failure: No Hx Diabetes: Yes Hx Deep Vein Thrombosis: No Hx Pulmonary Embolism: No Hx GERD: Yes Hx Liver Disease: No Hx Renal Disease: No Hx Sickle Cell Disease: No Hx Arthritis: No Hx Seizures: No Hx Kidney Stones: No Hx Psychiatric Treatment: Yes (schizophrenia, Bipolar) Hx Asthma: No Hx COPD: No Hx Tuberculosis: No Hx Dementia: No Hx HIV: No Additional medical history: HIGH CHOLESTEROL. Bipolar and schizophrenia - Surgical History Past Surgical History?: Yes Hx Coronary Stent: No Hx Open Heart Surgery: No Hx Pacemaker: No Hx Internal Defibrillator: No Hx Cholecystectomy: Yes Hx Appendectomy: No Hx Breast Surgery: No Additional Surgical History: rt hand surgery,tonsilectomy - Social History Smoking Status: Never Smoker Substance Use Type: None - Medications Home Medications: Home Medications Medication Instructions Recorded Confirmed Last Taken Type Aspirin [Aspirin BABY CHEW TAB] 81 mg PO QDAY 03/30/13 06/19/17 06/18/17 History Carvedilol [Coreg] 12.5 mg PO DAILY 03/30/13 06/19/17 06/18/17 History Insulin Aspart [NovoLOG 100 10 units SC HS 03/30/13 06/19/17 06/18/17 History UNITS/ML VIAL] Insulin Glargine,Hum.rec.anlog 40 unit SQ QHS 03/30/13 06/19/17 06/18/17 History [Lantus Solostar] Lisinopril [Zestril TAB] 5 mg PO QDAY 03/30/13 06/19/17 06/18/17 History Omeprazole [PriLOSEC] 40 mg PO DAILY 03/30/13 06/19/17 06/18/17 History ARIPiprazole [Abilify] 30 mg PO DAILY 06/19/17 06/19/17 06/18/17 History Cholecalciferol (Vitamin D3) 1,000 unit PO BID 06/19/17 06/19/17 06/18/17 History [Vitamin D3] Divalproex Sodium [Depakote ER] 500 mg PO TID 06/19/17 06/19/17 06/18/17 History Clopidogrel [Plavix] 75 mg PO DAILY #30 tablet 06/20/17 Unknown Rx ALBUTEROL Inhaler [ProAir HFA 2 puff IH QID PRN #1 inhalation 08/01/17 Unknown Rx Inhaler] Hycodan Cough Syrup 5 ml PO BID #150 ml 08/01/17 Unknown Rx Oseltamivir [Tamiflu] 75 mg PO BID 5 Days #20 cap 08/01/17 Unknown Rx ED Physical Exam - General Limitations: No Limitations General appearance: alert, in no apparent distress - Head Head exam: Present: atraumatic, normocephalic, normal inspection - Eye Eye exam: Present: normal appearance, PERRL - ENT ENT exam: Present: normal exam, normal orophraynx, mucous membranes moist - Neck Neck exam: Present: normal inspection, full ROM. Absent: tenderness, meningismus, lymphadenopathy, thyromegaly - Respiratory Respiratory exam: Present: normal lung sounds bilaterally. Absent: respiratory distress, wheezes, rales, rhonchi, stridor, chest wall tenderness, accessory muscle use, decreased breath sounds, prolonged expiratory - Cardiovascular Cardiovascular Exam: Present: regular rate, normal rhythm, normal heart sounds - GI/Abdominal GI/Abdominal exam: Present: soft, normal bowel sounds. Absent: distended, tenderness, guarding, rebound, rigid, organomegaly, mass, bruit, pulsatile mass , hernia - Extremities Exam Extremities exam: Present: normal inspection, full ROM, normal capillary refill - Back Exam Back exam: Present: normal inspection, full ROM. Absent: tenderness, CVA tenderness (R), CVA tenderness (L), muscle spasm, paraspinal tenderness, vertebral tenderness, rash noted - Neurological Exam Neurological exam: Present: alert, oriented X3, CN II-XII intact, normal gait, reflexes normal - Skin Skin exam: Present: warm, intact, normal color ED Course Vital Signs 11/07/17 11/07/17 11/07/17 04:25 09:58 10:00 Temperature 98.1 F Pulse Rate 86 Respiratory 20 Rate Blood Pressure 126/65 155/59 O2 Sat by Pulse 99 100 100 Oximetry 11/07/17 11/07/17 11/07/17 10:16 10:30 10:46 Temperature Pulse Rate Respiratory Rate Blood Pressure 155/59 159/75 159/75 O2 Sat by Pulse 100 100 100 Oximetry 11/07/17 11/07/17 11/07/17 11:02 11:16 11:30 Temperature Pulse Rate Respiratory Rate Blood Pressure 159/75 159/75 159/75 O2 Sat by Pulse 100 98 98 Oximetry 11/07/17 11/07/17 11/07/17 11:46 12:00 12:16 Temperature Pulse Rate Respiratory Rate Blood Pressure 166/70 156/72 156/72 O2 Sat by Pulse 99 100 99 Oximetry - Reevaluation(s) Reevaluation #1: 11/07/17 13:23 Patient stated that she is feeling much better. No dizziness. Blood sugar is 293. I advised patient to increase her Lantus for 40-60 and continuous her NovoLog . I also advised her to follow up with her primary care physician in the next 2-3 days and to return to the ER if her symptoms are not improved. ED Medical Decision Making - Lab Data Result diagrams: 11/07/17 05:04 11/07/17 05:04 - EKG Data -: EKG Interpreted by Me EKG shows normal: sinus rhythm Rate: normal - EKG Data Interpretation: no acute changes - Radiology Data Radiology results: report reviewed Critical care attestation.: If time is entered above; I have spent that time in minutes in the direct care of this critically ill patient, excluding procedure time. ED Disposition Clinical Impression: Hyperglycemia, Dizziness Disposition: DC-01 TO HOME OR SELFCARE Is pt being admited?: No Condition: Stable Instructions: Diabetic Hyperglycemia (ED), Dizziness (ED) Referrals: PRIMARY CARE,MD [Primary Care Provider] - 3-5 Days
--- NOTE | 2017-11-07 11:10 | Cat Scan Report ---
CT HEAD WITHOUT CONTRAST: HISTORY: Dizziness. TECHNIQUE: Sequential 2.5mm CT images. COMPARISON: 06/19/17. FINDINGS: Cerebral Parenchyma: Within normal limits. Cerebellum: Within normal limits. Brainstem: Within normal limits. Ventricles: Normal. Sella: Normal. Extra-axial spaces: Normal. Basal Cisterns: Normal. Intracranial Hemorrhage: None. Midline Shift: None. Calvarium: Normal. Sinuses: Normal. Mastoid Air Cells: Normal. Visualized Orbits: Normal. IMPRESSION: Cranial CT scan within normal limits.
[2017-11-07 13:30] VITALS: BP 155/73
== END 2017-11-07 13:50 | disposition home or self-care (01) ==
LOC: ED 04:12
DX: E11.65 Type 2 diabetes mellitus with hyperglycemia (principal); R42 Dizziness and giddiness; I10 Essential (primary) hypertension; K21.9 Gastro-esophageal reflux disease without esophagitis; F20.9 Schizophrenia, unspecified; F31.9 Bipolar disorder, unspecified; E78.00 Pure hypercholesterolemia, unspecified; Z90.89 Acquired absence of other organs; Z88.1 Allergy status to other antibiotic agents; Z88.6 Allergy status to analgesic agent; Z88.0 Allergy status to penicillin; Z88.8 Allergy status to other drugs, medicaments and biological substances; Z79.4 Long term (current) use of insulin
CPT/HCPCS: 36415; 70450; 80048; 81001; 82805; 82962; 85025; 93005; 93010; 96372; J1815

== ENCOUNTER 2018-10-31 19:01 | Emergency (ER) | payer MEDICARE, OTHER ==
[2018-10-31] MEDS ORDERED: TYLENOL PO ONE (20:43)
[2018-10-31] MEDS ORDERED: NACL 0.9% 1000 ML 1,000 ML IV ONE (20:43)
--- NOTE | 2018-10-31 20:43 | Emergency Department Report ---
ED General Adult HPI - General Chief complaint: Hyperglycemia Stated complaint: HIGH BLOOD SUGAR Time Seen by Provider: 10/31/18 20:26 Source: patient, EMS (ems notes not available at time of chart dictation), RN notes reviewed, old records reviewed Mode of arrival: Stretcher Limitations: Physical Limitation - History of Present Illness Initial comments: Primary care Dr.: Dr. Anderson This is a 63-year-old female. The patient is not known to this provider previously. Past medical history includes hypertension, diabetes, GERD, hyperlipidemia, bipolar, schizophrenia, and currently resides in a personal group home. Patient presents to the emergency room today with a complaint of high blood sugar. She recently switched over to a new insulin pen approximately one month ago. She reports typically her sugars ranged in the 120s to 140s. Today, it was 583. She then took 20 units of novolg and it went to 478 The patient went of mild frontal headache. The headache is present since this morning. The headache is throbbing. It is intermittent. It did not reach maximal intensity within one hour. Some vomiting. It is not the most intense headache of her life. She also endorses increased thirst, urinary frequency, and increased sleeping. She denies neck pain, chest pain, abdominal pain, shortness of breath. She reports urinary frequency. She denies dysuria. She endorses global weakness. The symptoms have been constant since earlier on this afternoon. They do not radiate anywhere. They do not have exacerbating or relieving factors that she is aware of. -: Gradual Location: head Quality: other Consistency: other Improves with: other Worsens with: other Associated Symptoms: other - Related Data Home Medications Medication Instructions Recorded Confirmed Last Taken Aspirin [Aspirin BABY CHEW TAB] 81 mg PO QDAY 03/30/13 06/19/17 06/18/17 Carvedilol [Coreg] 12.5 mg PO DAILY 03/30/13 06/19/17 06/18/17 Insulin Aspart [NovoLOG 100 10 units SC HS 03/30/13 06/19/17 06/18/17 UNITS/ML VIAL] Insulin Glargine,Hum.rec.anlog 40 unit SQ QHS 03/30/13 06/19/17 06/18/17 [Lantus Solostar] Lisinopril [Zestril TAB] 5 mg PO QDAY 03/30/13 06/19/17 06/18/17 Omeprazole [PriLOSEC] 40 mg PO DAILY 03/30/13 06/19/17 06/18/17 ARIPiprazole [Abilify] 30 mg PO DAILY 06/19/17 06/19/17 06/18/17 Cholecalciferol (Vitamin D3) 1,000 unit PO BID 06/19/17 06/19/17 06/18/17 [Vitamin D3] Divalproex Sodium [Depakote ER] 500 mg PO TID 06/19/17 06/19/17 06/18/17 Previous Rx's Medication Instructions Recorded Last Taken Type Clopidogrel [Plavix] 75 mg PO DAILY #30 tablet 06/20/17 Unknown Rx ALBUTEROL Inhaler (OR & NICU) 2 puff IH QID PRN #1 inhalation 08/01/17 Unknown Rx [ProAir HFA Inhaler] Hycodan Cough Syrup 5 ml PO BID #150 ml 08/01/17 Unknown Rx Oseltamivir [Tamiflu] 75 mg PO BID 5 Days #20 cap 08/01/17 Unknown Rx Allergies Allergy/AdvReac Type Severity Reaction Status Date / Time amoxicillin [Amoxicillin] Allergy Rash Verified 12/21/13 20:30 ibuprofen [From Advil] Allergy Rash Verified 12/21/13 20:31 metformin Allergy Rash Verified 03/30/13 04:12 Penicillins Allergy Rash Verified 12/21/13 20:30 ED Review of Systems ROS: Stated complaint: HIGH BLOOD SUGAR Other details as noted in HPI Constitutional: malaise, weakness. denies: fever Eyes: denies: eye discharge ENT: denies: epistaxis Respiratory: denies: cough Cardiovascular: denies: chest pain Gastrointestinal: denies: nausea, vomiting Genitourinary: frequency Musculoskeletal: denies: back pain Neurological: headache, weakness Psychiatric: denies: homicidal thoughts, suicidal thoughts ED Past Medical Hx - Past Medical History Hx Hypertension: Yes Hx CVA: No Hx Heart Attack/AMI: No Hx Congestive Heart Failure: No Hx Diabetes: Yes Hx Deep Vein Thrombosis: No Hx Pulmonary Embolism: No Hx GERD: Yes Hx Liver Disease: No Hx Renal Disease: No Hx Sickle Cell Disease: No Hx Arthritis: No Hx Seizures: No Hx Kidney Stones: No Hx Psychiatric Treatment: Yes (schizophrenia, Bipolar) Hx Asthma: No Hx COPD: No Hx Tuberculosis: No Hx Dementia: No Hx HIV: No Additional medical history: HIGH CHOLESTEROL. Bipolar and schizophrenia - Surgical History Hx Coronary Stent: No Hx Open Heart Surgery: No Hx Pacemaker: No Hx Internal Defibrillator: No Hx Cholecystectomy: Yes Hx Appendectomy: No Hx Breast Surgery: No Additional Surgical History: rt hand surgery,tonsilectomy - Social History Smoking Status: Never Smoker Substance Use Type: None - Medications Home Medications: Home Medications Medication Instructions Recorded Confirmed Last Taken Type Aspirin [Aspirin BABY CHEW TAB] 81 mg PO QDAY 03/30/13 06/19/17 06/18/17 History Carvedilol [Coreg] 12.5 mg PO DAILY 03/30/13 06/19/17 06/18/17 History Insulin Aspart [NovoLOG 100 10 units SC HS 03/30/13 06/19/17 06/18/17 History UNITS/ML VIAL] Insulin Glargine,Hum.rec.anlog 40 unit SQ QHS 03/30/13 06/19/17 06/18/17 History [Lantus Solostar] Lisinopril [Zestril TAB] 5 mg PO QDAY 03/30/13 06/19/17 06/18/17 History Omeprazole [PriLOSEC] 40 mg PO DAILY 03/30/13 06/19/17 06/18/17 History ARIPiprazole [Abilify] 30 mg PO DAILY 06/19/17 06/19/17 06/18/17 History Cholecalciferol (Vitamin D3) 1,000 unit PO BID 06/19/17 06/19/17 06/18/17 History [Vitamin D3] Divalproex Sodium [Depakote ER] 500 mg PO TID 06/19/17 06/19/17 06/18/17 History Clopidogrel [Plavix] 75 mg PO DAILY #30 tablet 06/20/17 Unknown Rx ALBUTEROL Inhaler (OR & NICU) 2 puff IH QID PRN #1 inhalation 08/01/17 Unknown Rx [ProAir HFA Inhaler] Hycodan Cough Syrup 5 ml PO BID #150 ml 08/01/17 Unknown Rx Oseltamivir [Tamiflu] 75 mg PO BID 5 Days #20 cap 08/01/17 Unknown Rx ED Physical Exam - General Limitations: No Limitations General appearance: alert, in no apparent distress - Head Head exam: Present: atraumatic, normocephalic - Eye Eye exam: Present: normal appearance, EOMI, other (visual acuity intact to finger counting, color perception, reading at a close distance). Absent: nystagmus - ENT ENT exam: Present: normal exam, normal orophraynx, mucous membranes moist, normal external ear exam - Neck Neck exam: Present: normal inspection, full ROM. Absent: tenderness, meningismus - Respiratory Respiratory exam: Present: normal lung sounds bilaterally. Absent: respiratory distress - Cardiovascular Cardiovascular Exam: Present: regular rate, normal rhythm, normal heart sounds. Absent: bradycardia, tachycardia, irregular rhythm, systolic murmur, diastolic murmur, rubs, gallop - GI/Abdominal GI/Abdominal exam: Present: soft. Absent: distended, tenderness, guarding, rebound, rigid, pulsatile mass - Extremities Exam Extremities exam: Present: normal inspection, full ROM, other (2+ pulses noted in the bilateral upper, lower extremities. Compartments soft. No long bony te nderness. The pelvis is stable.). Absent: pedal edema, joint swelling, calf tenderness - Back Exam Back exam: Present: normal inspection, full ROM. Absent: tenderness, CVA tenderness (R), paraspinal tenderness, vertebral tenderness - Neurological Exam Neurological exam: Present: alert, oriented X3, normal gait (walks with a one- person assist), other (Extraocular movements intact. Tongue midline. No facial droop. Facial sensation intact to light touch in the V1, V2, V3 distribution bilaterally. 5 and 5 strength in 4 extremities.. Sensation is intact to light touch in 4 extremities.). Absent: motor sensory deficit - Psychiatric Psychiatric exam: Present: normal affect, normal mood - Skin Skin exam: Present: warm, dry, intact, normal color. Absent: rash ED Course Vital Signs 10/31/18 10/31/18 10/31/18 19:31 19:41 19:45 Temperature 98.4 F Pulse Rate 88 Respiratory 18 Rate Blood Pressure 166/79 166/79 O2 Sat by Pulse 97 98 98 Oximetry 10/31/18 10/31/18 10/31/18 20:00 20:15 20:17 Temperature Pulse Rate Respiratory 18 Rate Blood Pressure 165/72 O2 Sat by Pulse 100 96 100 Oximetry 10/31/18 10/31/18 10/31/18 20:30 20:45 21:00 Temperature Pulse Rate 84 80 80 Respiratory 24 26 H 22 Rate Blood Pressure 162/78 161/71 164/75 O2 Sat by Pulse 98 100 98 Oximetry 10/31/18 10/31/18 10/31/18 21:15 21:39 21:45 Temperature Pulse Rate 69 81 78 Respiratory 23 18 22 Rate Blood Pressure 172/67 172/67 176/73 O2 Sat by Pulse 99 100 99 Oximetry 10/31/18 10/31/18 10/31/18 22:00 22:15 22:31 Temperature Pulse Rate 77 76 75 Respiratory 22 19 20 Rate Blood Pressure 176/73 179/69 179/69 O2 Sat by Pulse 99 98 100 Oximetry 10/31/18 10/31/18 10/31/18 22:45 23:00 23:15 Temperature Pulse Rate 74 75 76 Respiratory 18 20 20 Rate Blood Pressure 179/69 193/79 155/82 O2 Sat by Pulse 99 99 99 Oximetry 10/31/18 23:30 Temperature Pulse Rate 78 Respiratory 21 Rate Blood Pressure 149/71 O2 Sat by Pulse 98 Oximetry - Reevaluation(s) Reevaluation #1: 10/31/18 22:18 Differential diagnosis, including not limited to: Hyperglycemia, diabetic ketoacidosis, hyperosmolar state, migraine headache, tension headache, cluster headache, peripheral neuropathy Assessment and plan: 63-year-old female with hyperglycemia, no anion gap acidosis, unremarkable physical examination otherwise, subtly elevated blood pressure. Venous pH reviewed and appreciated, but with essentially normal anion gap, does not meet the definition criteria for diabetic ketoacidosis. We will treat the patient's symptoms, give IV fluids, acetaminophen, insulin, and reassess once hyperglycemia has improved. Reevaluation #2: 10/31/18 23:42 Walking with a steady gait. Feels improved. Repeat Accu-Chek is acceptable. Patient resting comfortably, and stretcher, and in no acute distress. Patient medically suitable for discharge at this point in time ED Medical Decision Making - Lab Data Result diagrams: 10/31/18 20:45 10/31/18 20:45 Vital Signs 10/31/18 10/31/18 10/31/18 19:41 20:15 20:17 Temperature 98.4 F Pulse Rate 88 Respiratory 18 18 Rate Blood Pressure 166/79 165/72 O2 Sat by Pulse 98 96 100 Oximetry Lab Results 10/31/18 10/31/18 10/31/18 Range/Units 20:19 20:45 20:45 WBC 5.6 (4.5-11.0) K/mm3 RBC 4.20 (3.65-5.03) M/mm3 Hgb 11.5 (10.1-14.3) gm/dl Hct 34.3 (30.3-42.9) % MCV 82 (79-97) fl MCH 27 L (28-32) pg MCHC 33 (30-34) % RDW 15.3 H (13.2-15.2) % Plt Count 260 (140-440) K/mm3 VBG pH (7.320-7.420) Sodium 136 L (137-145) mmol/L Potassium 4.7 (3.6-5.0) mmol/L Chloride 96.5 L (98-107) mmol/L Carbon Dioxide 29 (22-30) mmol/L Anion Gap 15 mmol/L BUN 18 H (7-17) mg/dL Creatinine 1.0 (0.7-1.2) mg/dL Estimated GFR > 60 ml/min BUN/Creatinine Ratio 18 % Glucose 356 H (65-100) mg/dL POC Glucose 473 H (70-105) Calcium 9.7 (8.4-10.2) mg/dL Magnesium 1.80 (1.7-2.3) mg/dL Total Creatine Kinase 98 (30-135) units/L Valproic Acid (50-100) ug/mL 10/31/18 10/31/18 Range/Units 20:45 20:45 WBC (4.5-11.0) K/mm3 RBC (3.65-5.03) M/mm3 Hgb (10.1-14.3) gm/dl Hct (30.3-42.9) % MCV (79-97) fl MCH (28-32) pg MCHC (30-34) % RDW (13.2-15.2) % Plt Count (140-440) K/mm3 VBG pH 7.311 L (7.320-7.420) Sodium (137-145) mmol/L Potassium (3.6-5.0) mmol/L Chloride (98-107) mmol/L Carbon Dioxide (22-30) mmol/L Anion Gap mmol/L BUN (7-17) mg/dL Creatinine (0.7-1.2) mg/dL Estimated GFR ml/min BUN/Creatinine Ratio % Glucose (65-100) mg/dL POC Glucose (70-105) Calcium (8.4-10.2) mg/dL Magnesium (1.7-2.3) mg/dL Total Creatine Kinase (30-135) units/L Valproic Acid < 2.8 L (50-100) ug/mL - EKG Data -: EKG Interpreted by Me EKG shows normal: sinus rhythm Rate: normal - EKG Data 10/31/18 22:17 This is not consistent with ST elevation myocardial infarction, appears unchanged from prior EKG 11/07/2017 Sinus rhythm, 79 bpm, normal axis, QTC prolonged, left ventricular hypertrophy - Radiology Data Radiology results: pending, report reviewed, image reviewed Noncontrast CT scan of the brain is negative for acute disease Critical care attestation.: If time is entered above; I have spent that time in minutes in the direct care of this critically ill patient, excluding procedure time. ED Disposition Clinical Impression: Hyperglycemia Disposition: DC-01 TO HOME OR SELFCARE Is pt being admited?: No Does the pt Need Aspirin: No Condition: Stable Instructions: Diabetic Hyperglycemia (ED) Additional Instructions: Continue current outpatient medications. Follow up with her primary care doctor for hyperglycemia and recheck within the next 2 weeks. Return to the emergency room right away or projectile vomiting, change in mental status, lethargy, irritability, inability to tolerate liquid feeds, new, worsening or different symptoms. Take acetaminophen, [id number], 350 mg, every 4-6 hours, as needed for headache. Referrals: PRIMARY CARE, [Primary Care Provider] - 3-5 Days MYNOR ANDERSON MD [Staff Physician] - 3-5 Days
[2018-10-31 21:17] LABS: Hematocrit 34.3 % (30.3-42.9); Hemoglobin 11.5 gm/dl (10.1-14.3); Mean Corpuscular HGB Conc 33 % (30-34); Mean Corpuscular Volume 82 fl (79-97); Platelet Count 260 K/mm3 (140-440); Red Cell Distribution Width 15.3 % (13.2-15.2)
[2018-10-31 21:37] LABS: BUN/Creatinine Ratio 18; Blood Urea Nitrogen 18 mg/dL (7-17); Calcium 9.7 mg/dL (8.4-10.2); Hemolysis Index 3
--- NOTE | 2018-10-31 22:00 | Cat Scan Report ---
PROCEDURE: CT HEAD/BRAIN WO CON TECHNIQUE: Spiral CT imaging of the brain was obtained without the use of IV contrast. HISTORY: dizzy headache COMPARISONS: Prior CT scan of the brain 06/19/2017 FINDINGS: Brain: Brain density appears normal. No evidence of intracranial hemorrhage. No parenchymal hemorr alvaro, mass lesions or mass effect are seen. No abnormal extra-axial fluid collects or masses are see n. Ventricles: Ventricles are normal size and are midline. Bone Windows: No evidence of skull fracture. Paranasal sinuses: Visualized portions are clear.. Mastoid air cells: Clear. IMPRESSION: Negative exam. This document is electronically signed by Hari Obrien MD., October 31 2018 09:58:43 PM ET
[2018-10-31] MEDS ORDERED: HumuLIN R IV ONE (22:11)
[2018-10-31 23:17] LABS: Bilirubin,Urine NEG (Negative); Blood,Urine NEG (Negative); Color,Urine Colorless (Yellow); Mucus,Urine FEW /HPF; Protein,Urine <15 mg/dL mg/dL (Negative); Urobilinogen,Urine < 2.0 mg/dL (<2.0); WBC,Urine < 1.0 /HPF (0.0-6.0)
[2018-10-31 23:33] VITALS: BP 149/71
== END 2018-11-01 00:02 | disposition home or self-care (01) ==
LOC: ED 19:01
DX: E11.65 Type 2 diabetes mellitus with hyperglycemia (principal); I10 Essential (primary) hypertension; K21.9 Gastro-esophageal reflux disease without esophagitis; E78.00 Pure hypercholesterolemia, unspecified; Z98.51 Tubal ligation status; Z79.82 Long term (current) use of aspirin; Z79.4 Long term (current) use of insulin; Z88.6 Allergy status to analgesic agent; Z88.1 Allergy status to other antibiotic agents; Z88.0 Allergy status to penicillin; Z88.8 Allergy status to other drugs, medicaments and biological substances
CPT/HCPCS: 36415; 70450; 80048; 80164; 81001; 82550; 82805; 82962; 83735; 85027; 93005; 93010; 96361; 96374; 99285; J7030; J1815